=== PATIENT | male | born 1940 | race Caucasian/White ===

== ENCOUNTER 2017-07-01 20:53 | Inpatient (IN) ==
[2017-07-01] MEDS ORDERED: SODIUM CHLORIDE 0.9% 1,000 ML IV STA (21:44)
[2017-07-01] MEDS ORDERED: cefTRIAXone 1,000 MG VIAL ONE (21:46)
[2017-07-01] MEDS ORDERED: SODIUM CHLORIDE 0.9% 2,500 ML IV ONE (21:48)
[2017-07-01] MEDS ORDERED: cefTRIAXone 1,000 MG in SODIUM CHLORIDE 0.9% 100 ML IV STA (21:50)
--- NOTE | 2017-07-01 21:52 | Emergency Department Note ---
Yan Taylor Brooke, am scribing for, and in the presence of, Chema Kingston MD 21 :51. Vashti Taylor Charles R, MD, personally performed the services described in this documentation, ascribed by Adriana Heredia in my presence, and it is both accurate and complete . Arrival - Arrival Chief Complaint: Fever ED Nursing Triage Note: Pt arrives via ems with complaints of fever since yesterday and altered mental status. states that he has been acting confused today. states that he has had some nasal congestion but no cough or other symptoms. Reports a temp of 101.0 axillary at home. Mode of Arrival: Stretcher Limitations: Altered Mental Status Source: Patient, Significant other, Family Time Seen by Provider: 07/01/17 21:16 - History of Present Illness HPI Narrative: Patient is a 76 year old male who presents to the ED with c/o fever and altered mental status. Patient is a poor historian. Family says Patient has been running a low grade fever since last night. His temperature during triage was 102.3. Family says Patient does have a history of Alzheimer Disease but states he is acting differently than he normally does. Family says "he has been out of it all day." Family says he was walking earlier but it was slow and unsteady. However, this evening, Patient was unable to get off the couch so Family called EMS. He also has PMHx of [place](39 years old), depression, dementia, dyslipidemia, and tremors. Patient's Primary Care Provider is Dr. Das and his Receiving Teller is Dr. Rodriguez. Onset (ago): day(s) (1) Allergies/Adverse Reactions: Allergies Allergy/AdvReac Type Severity Reaction Status Date / Time No Known Allergies Allergy Verified 10/21/16 16:42 Home Medications: Home Medications Medication Instructions Recorded Confirmed Type Ascorbic Acid [Vitamin C] 500 mg PO DAILY 07/01/17 07/01/17 History Aspirin EC Tab 81 mg PO DAILY 07/01/17 07/01/17 History Cholecalciferol (Vitamin D3) 1,000 unit PO DAILY 07/01/17 07/01/17 History [Vitamin D3] Cilostazol 50 mg PO BID 07/01/17 07/01/17 History Donepezil HCl 10 mg PO DAILY 07/01/17 07/01/17 History Escitalopram [Lexapro] 10 mg PO DAILY 07/01/17 07/01/17 History Fenofibrate [Tricor] 145 mg PO DAILY 07/01/17 07/01/17 History Fexofenadine [Nayla] 180 mg PO DAILY 07/01/17 07/01/17 History Memantine HCl [Namenda XR] 28 mg PO DAILY 07/01/17 07/01/17 History Multivitamin (Centrum) [Centrum 1 tablet DAILY 07/01/17 07/01/17 History Tab] Simvastatin 20 mg PO DAILY 07/01/17 07/01/17 History Review of System - Review of System ROS unobtainable: due to mental status 12 point system: reviewed and no additional remarkable complaints except as stated - Review of System Constitutional: Present: fever Respiratory: Absent: respiratory distress Skin: Absent: rash Neurological: Present: other (altered mental status) Medical,Surgical,& Family Hx - Medical History Psychological: History of: Depression Neurology: History of: Dementia Endocrine: History of: Dyslipidemia - Social History Smoking Status: Never smoker Frequency of Alcohol Use: None Type of Drug Use: None Exam Vital Signs: Vital Signs Temperature 102.3 F H 07/01/17 20:53 Pulse Rate 80 07/01/17 20:53 Respiratory Rate 20 07/01/17 20:53 Blood Pressure 83/59 07/01/17 20:53 O2 Sat by Pulse Oximetry 95 07/01/17 20:53 - General General appearance: alert, in no apparent distress, other (confused. Nonverbal but moans.) - Head Head exam: Present: atraumatic, normocephalic - Eye Eye exam: Present: normal appearance, PERRL, EOMI - ENT ENT exam: Present: normal exam - Neck Neck exam: Present: normal inspection - Chest Chest inspection: Present: normal inspection, symmetric chest wall rise - Respiratory Respiratory exam: Present: normal lung sounds bilaterally - Cardiovascular Cardiovascular exam: Present: normal rhythm, tachycardia, normal heart sounds - Abdominal Exam Abdominal exam: Present: soft, normal bowel sounds. Absent: distention, tenderness - Extremities Exam Extremities exam: Present: normal inspection - Back Exam Back exam: Present: normal inspection - Neurological Exam Neurological exam: Present: alert. Absent: oriented X3 - Psychiatric Psychiatric exam: Present: normal affect, normal mood - Skin Skin exam: Present: warm (Febrile), dry, intact, normal color Course - Consultations Consultation #1: Hospitalist will admit patient Time: 23:13 Results - Labs CBC & BMP: 07/01/17 21:04 07/01/17 21:04 Lab Results: I have reviewed the patients labs Labs: Laboratory Tests 07/01/17 07/01/17 07/01/17 21:04 21:04 21:04 WBC 5.8 RBC 3.18 L Hgb 9.5 L Hct 27.6 L MCV 86.8 L MCH 30 MCHC 34.4 RDW 14.7 Plt Count 133 MPV 10.1 Neut % (Auto) 48.0 Lymph % (Auto) 46.7 Elbert % (Auto) 2.9 Eos % (Auto) 0.0 Baso % (Auto) 0.2 Neut # (Auto) 2.8 Lymph # (Auto) 2.7 Elbert # (Auto) 0.2 Eos # (Auto) 0.0 Baso # (Auto) 0.0 Immature Gran % 2.2 Nucleated RBC % 0.0 Immature Gran # 0.13 Nucleated RBCs # 0.00 Immature Plt Fraction 0.0 Sodium 137 Potassium 3.4 L Chloride 106 Carbon Dioxide 25 Anion Gap 9.4 BUN 25 H Creatinine 1.40 H GFR Calculation 59 BUN/Creatinine Ratio 17.00 Glucose 111 H Calculated Osmolality 277.8 Lactic Acid 1.9 Calcium 8.0 L Total Bilirubin < 0.39 AST 23 ALT 16 Alkaline Phosphatase < 10 L Total Protein 6.1 L Albumin 3.4 Globulin 2.7 Albumin/Globulin Ratio 1.2 Laboratory Tests 07/01/17 07/01/17 07/01/17 21:04 21:04 Unknown INR 1.4 PT Patient/Control Mix 14.8 Circ Anticoag PTT 31.4 ABG pH 7.434 ABG pCO2 36.1 ABG pO2 61.6 L ABG HCO3 24.5 ABG Total CO2 22.4 L ABG O2 Saturation 92.1 L ABG Base Excess 0.2 FiO2 21.00 Sodium 137 Potassium 3.4 L Chloride 106 Carbon Dioxide 25 Anion Gap 9.4 BUN 25 H Creatinine 1.40 H GFR Calculation 59 BUN/Creatinine Ratio 17.00 Glucose 111 H Calculated Osmolality 277.8 Calcium 8.0 L Total Bilirubin < 0.39 AST 23 ALT 16 Alkaline Phosphatase < 10 L Total Protein 6.1 L Albumin 3.4 Globulin 2.7 Albumin/Globulin Ratio 1.2 Laboratory Tests 07/01/17 22:59 Urine Color Yellow Urine Appearance Clear Urine pH 5.0 Ur Specific [place] 1.011 Urine Protein Negative Urine Glucose (UA) Negative Urine Ketones Negative Urine Blood Negative Urine Nitrate Negative Urine Bilirubin Negative Urine Urobilinogen < 2.0 H Urine Leukocytes Negative Urine RBC <1 Urine WBC 2 Urine Mucus Occasional Ur Culture Indicated? Ordered separately - Diagnostic Findings Procedure: Chest x-ray: image reviewed by me (Questionable infiltrate right lower lung also infiltrate/mass left lower lung difficult to see because of the diaphragm) Critical Care Time Critical Care Time: Yes Total Critical Care Time: 60 Disposition Clinical Impression: Sepsis, Hypotension, Alzheimer's dementia, Fever, Confusion, Altered mental status, Community acquired pneumonia Case discussed with: patient, patient's family Disposition: Still a Patient Condition: Guarded Time of Disposition: 23:15 Sepsis - Sepsis Classification of Sepsis: Sepsis - Physical Exam Respiratory exam: rhonchi Capillary Refill: Less Than 3 Seconds
[2017-07-01 22:03] LABS: Basophils % 0.2 % (0.0-0.8); Hematocrit 27.6 VOL% (42.0-52.0); Hemoglobin 9.5 GM/DL (14.0-18.0); Immature Granulocytes % 2.2 %; Immature Granulocytes Absolute 0.13 #; Lymphocytes # 2.7 10*3/uL (1.4-4.0); Lymphocytes % 46.7 % (21.2-54.2); Mean Corpuscular HGB Conc 34.4 GM/DL (32-36); Mean Corpuscular Hemoglobin 30 PG (27-34); Mean Corpuscular Volume 86.8 FL (87-102); Mean Platelet Volume 10.1 FL (9.6-12.0); Monocytes # 0.2 10*3/uL (0.11-0.8); Monocytes % 2.9 % (1.7-12.7); Neutrophils # 2.8 10*3/uL (1.4-7.4); Platelet Count 133 T/CUMM (130-400); Red Blood Count 3.18 MC/CUMM (3.8-5.5); Red Cell Distribution Width 14.7 % (9.3-17.3); White Blood Count 5.8 T/CUMM (4-12)
[2017-07-01 22:14] LABS: Alanine Aminotransferase 16 U/L (16-61); Albumin 3.4 G/DL (3.4-5.0); Alkaline Phosphatase < 10 U/L (45-117); Aspartate Amino Transferase 23 U/L (0-37); Bilirubin,Total < 0.39 MG/DL (0.2-1.0); Blood Urea Nitrogen 25 MG/DL (7-18); Glucose 111 MG/DL (74-106); Osmolality,Calculated 277.8 MOS/KG (273-304); Potassium 3.4 MMOL/L (3.5-5.1); Sodium 137 MMOL/L (136-145); Total Protein 6.1 G/DL (6.4-8.3)
[2017-07-01 22:15] LABS: ABG Base Excess 0.2 MMOL/L (-2.5-2.5); ABG HCO3 24.5 MMOL/L (20-26); ABG Oxygen Saturation 92.1 % (95-100); ABG PCO2 36.1 MM HG (35-48); ABG PH 7.434 (7.35-7.45); ABG PO2 61.6 MM HG (80-95); ABG TCO2 22.4 MMOL/L (23-27)
[2017-07-01 22:18] LABS: INR 1.4; PT Patient Result 14.8 SECS; Partial Thromboplastin Time 31.4 SECS (0-40)
[2017-07-01] MEDS ORDERED: SODIUM CHLORIDE 0.9% 500 ML IV STA (22:28)
[2017-07-01 23:50] LABS: Apearance,Urine CLEAR (Clear); Bilirubin,Urine Negative (Negative); Blood, Urine Negative (Negative); Glucose,Urine (UA) Negative (Negative); Ketones,Urine Negative (Negative); Mucus,Urine Occasional /LPF (Occasional); Nitrite,Urine Negative (Negative); Protein,Urine Negative; RBC,Urine <1 /HPF (0-4); Urine Color Yellow (Yellow); Urine Specific Gravity 1.011 (1.001-1.035); Urine Urobilinogen < 2.0 EU/DL (0.2-1.0); WBC,Urine 2 /HPF (0-6)
[2017-07-02] MEDS: SODIUM CHLORIDE 0.9% 1,000 ML IV SCH ×6 (00:37→23:01)
[2017-07-02] MEDS ORDERED: LEVOFLOXACIN INJ 150 ML IV ONE (00:38)
[2017-07-02] MEDS: LEVOFLOXACIN INJ 750 MG in PREMIX 1 EACH IV SCH ×2 (00:38→23:33)
--- NOTE | 2017-07-02 00:43 | Hospitalist History & Physical ---
Assessment and Plan (1) Sepsis Status: Acute Current Visit: Yes (2) Hypotension Status: Acute Current Visit: Yes (3) Alzheimer's disease Status: Acute Current Visit: Yes (4) Fever Status: Acute Current Visit: Yes (5) Confusion Status: Acute Current Visit: Yes (6) Altered mental status Status: Acute Current Visit: Yes (7) Community acquired pneumonia Status: Acute Assessment and plan: Patient appears to be septic. He is already received 2.5 L of fluid boluses in the emergency room. Will continue septic protocol with choice of antibiotics. Continue other home meds as appropriate. Feel that the source is most likely a pneumonia. Will go ahead and culture his urine also. Blood cultures were drawn. Current Visit: Yes History of Present Illness Chief complaint: Altered mental status History of present illness: Mr. Colón is a 76 year old male with past medical history significant for coronary artery disease and dementia who was in his normal state of health for the past couple of days. Patient has been running a fever. He is temperature has been as high as 102.3. Family reports that he she has been acting differently. He is basically slept all day yesterday. He seemed more lethargic today. Leg could not get him up off the couch and so they called EMS who brought him up to our hospital for further evaluation. I was consulted to admit him Home Medications Medication Instructions Recorded Confirmed Type Ascorbic Acid [Vitamin C] 500 mg PO DAILY 07/01/17 07/01/17 History Aspirin EC Tab 81 mg PO DAILY 07/01/17 07/01/17 History Cholecalciferol (Vitamin D3) 1,000 unit PO DAILY 07/01/17 07/01/17 History [Vitamin D3] Cilostazol 50 mg PO BID 07/01/17 07/01/17 History Donepezil HCl 10 mg PO DAILY 07/01/17 07/01/17 History Escitalopram [Lexapro] 10 mg PO DAILY 07/01/17 07/01/17 History Fenofibrate [Tricor] 145 mg PO DAILY 07/01/17 07/01/17 History Fexofenadine [Nayla] 180 mg PO DAILY 07/01/17 07/01/17 History Memantine HCl [Namenda XR] 28 mg PO DAILY 07/01/17 07/01/17 History Multivitamin (Centrum) [Centrum 1 tablet DAILY 07/01/17 07/01/17 History Tab] Simvastatin 20 mg PO DAILY 07/01/17 07/01/17 History Allergies Allergy/AdvReac Type Severity Reaction Status Date / Time No Known Allergies Allergy Verified 10/21/16 16:42 Medical,Surgical,& Family Hx - Medical History Psychological: History of: Depression Neurology: History of: Dementia, Parkinson's Disease Endocrine: History of: Dyslipidemia - Surgical History Additional Surgical History: Aortic aneurysm repair cholecystectomy - Family History Family History: Reports;: Family Cancer, Family Diabetes - Social History Smoking Status: Never smoker Frequency of Alcohol Use: None Type of Drug Use: None ROS unobtainable: due to mental status Exam - Constitutional Vitals: Period Temp Pulse Resp BP Sys/Ingram Pulse Ox Last 24 Hr 102.3 F-102.3 F 80-80 20-20 83-83/59-59 95 General appearance: normal weight, other (We will interact but is confused) - Head Head exam: Present: normal inspection - Eye Pupils: Present: RONAN - ENT ENT exam: Present: normal exam - Neck Neck exam: Present: normal inspection - Respiratory Respiratory exam: Present: clear to auscultation bilaterally - Cardiovascular Cardiovascular exam: Present: regular rate and rhythm - GI/Abdominal GI/Abdominal exam: Present: normal bowel sounds - Extremities Exam Extremities exam: Present: normal inspection - Back Exam Back exam: Present: normal inspection - Neurological Exam Neurological exam: Present: altered - Psychiatric Psychiatric exam: Present: flat affect - Skin Skin exam: Present: warm Results - Labs CBC & BMP: 07/01/17 21:04 07/01/17 21:04
[2017-07-02] MEDS ORDERED: NOREPINEPHRINE 4 MG/4 ML VIAL IV ONE (00:47)
[2017-07-02] MEDS ORDERED: ALBUTEROL 2.5 MG/3 ML NEB RESP TX PRN (00:48)
[2017-07-02] MEDS ORDERED: ONDANSETRON 4 MG/2 ML VIAL IV PRN (00:48)
[2017-07-02] MEDS: NOREPINEPHRINE 8 MG in SODIUM CHLORIDE 0.9% 242 ML IV SCH (01:14)
[2017-07-02] MEDS ORDERED: PANTOPRAZOLE 40 MG VIAL IV ONE (01:20)
[2017-07-02] MEDS ORDERED: PIPERACILLIN/TAZOBACTAM 3,375 MG VIAL IV ONE (01:20)
[2017-07-02] MEDS ORDERED: ENOXAPARIN 40 MG/0.4 ML SYRINGE ONE (01:20)
[2017-07-02] MEDS: ENOXAPARIN 40 MG/0.4 ML SYRINGE SUBCUT SCH (01:23)
[2017-07-02] MEDS: PANTOPRAZOLE 40 MG VIAL IV SCH (01:24)
[2017-07-02] MEDS: ACETAMINOPHEN 325 MG TABLET PO PRN ×3 (02:31→16:44)
[2017-07-02] MEDS: PIPERACILLIN/TAZOBACTAM 3,375 MG in SODIUM CHLORIDE 0.9% 100 ML IV SCH ×3 (02:31→18:47)
[2017-07-02] MEDS: ZIPRASIDONE 20 MG/1 ML VIAL IM PRN ×4 (03:45→23:29)
[2017-07-02 05:35] LABS: Basophils % 0.2 % (0.0-0.8); Hematocrit 26.8 VOL% (42.0-52.0); Hemoglobin 8.9 GM/DL (14.0-18.0); Immature Granulocytes % 4.5 %; Immature Granulocytes Absolute 0.23 #; Lymphocytes # 2.1 10*3/uL (1.4-4.0); Mean Corpuscular HGB Conc 33.2 GM/DL (32-36); Mean Corpuscular Hemoglobin 29 PG (27-34); Mean Platelet Volume 10.2 FL (9.6-12.0); Monocytes # 0.2 10*3/uL (0.11-0.8); Monocytes % 2.9 % (1.7-12.7); Neutrophils # 2.7 10*3/uL (1.4-7.4); Neutrophils % 52.4 % (38.7-73.9); Platelet Count 112 T/CUMM (130-400); Red Blood Count 3.08 MC/CUMM (3.8-5.5); Red Cell Distribution Width 14.7 % (9.3-17.3); White Blood Count 5.2 T/CUMM (4-12)
[2017-07-02 06:17] LABS: Atypical Lymphocytes Moderate; Band Neutrophils 1 % (0-10); Hypochromasia 1+; Lymphocytes 22 % (20-55); Platelet Estimate Decreased; Segmented Neutrophils 75 % (50-85); Total Cells Counted 100
[2017-07-02 06:24] LABS: Alanine Aminotransferase 15 U/L (16-61); Alkaline Phosphatase < 10 U/L (45-117); Aspartate Amino Transferase 27 U/L (0-37); Blood Urea Nitrogen 21 MG/DL (7-18); Calcium 7.9 MG/DL (8.5-10.1); Glucose 112 MG/DL (74-106); Osmolality,Calculated 276.8 MOS/KG (273-304); Potassium 3.3 MMOL/L (3.5-5.1); Sodium 137 MMOL/L (136-145); Total Protein 5.6 G/DL (6.4-8.3)
--- NOTE | 2017-07-02 06:41 | XRay Report ---
XR chest 1V portable Indication: Fever. Chest one view: Comparison 01/31/2012. Lungs are somewhat hypoinflated when compared to the prior examination. Diffuse moderately severe peribronchial thickening is developed throughout. No focal infiltrate is seen. Heart size is normal. Mediastinal contours unremarkable. Central pulmonary vascular crowding noted. Impression: Airways disease such as bronchitis or viral syndrome. Pulmonary hypoinflation. PROCEDURE INTERPRETED AT [facility] DEPARTMENT OF RADIOLOGY Final Report Signed by: Grayson Tobar M.D.
[2017-07-02 08:34] LABS: Magnesium 2.1 MG/DL (1.8-2.4); Osmolality,Calculated 282.3 MOS/KG (273-304); Potassium 3.6 MMOL/L (3.5-5.1)
[2017-07-02] MEDS ORDERED: PIPERACILLIN/TAZOBACTAM 3,375 MG in SODIUM CHLORIDE 0.9% 100 ML IV SCH (10:00)
--- NOTE | 2017-07-02 14:22 | Hospitalist Progress Note ---
Assessment and Plan - Time spent with patient Time spent with patient: Greater than 30 minutes (1) Altered mental status Status: Acute Assessment and plan: 07/02/2017: Patient is somnolent. His baseline neurologic function and status is not known. Obtain additional medical information when patient's family members are available. Current Visit: Yes (2) Community acquired pneumonia Status: Acute Assessment and plan: 07/02/2017: Portable chest x-ray completed yesterday quality is reduced by hypoinflation. Moderately severe peribronchial thickening is described throughout. No focal infiltrate. Changes possibly consistent with acute bronchitis. Monitor oxygen saturation. Add supplemental oxygen as required to maintain saturation greater than 90%. Patient's reduced cognition limits his ability to participate with cough and deep breathing exercises or bedside incentive spirometry exercises. Current Visit: Yes (3) Sepsis Status: Acute Assessment and plan: 07/02/2017: Hypotension and fever documented at the time of hospital admission. Patient now has normal range blood pressure without pressors or aggressive IV fluid hydration. Patient is receiving empiric Levaquin and Zosyn antibiotic therapy. He required levophed blood pressure support overnight. Follow-up 07/01/2017 blood and urine culture reports. Current Visit: Yes (4) Coronary artery disease Status: Chronic Assessment and plan: 07/02/2017: Patient is hemodynamically stable. There is no report of recent chest pain, shortness of breath, palpitations, cardiac rhythm disturbance, or active CHF decompensation. Current Visit: Yes (5) Acute kidney injury Status: Acute Assessment and plan: 07/02/2017: Patient's BUN and creatinine are decreasing toward normal range. Continue IV hydration. Recheck BMP in a.m. Current Visit: Yes Hospitalist: Subjective Interval history: 07/02/2017: Patient is a 76-year-old male admitted for evaluation and treatment of increased confusion and altered mental status. Patient has a history of Alzheimer's type dementia. His specific baseline level of function is not known. Clarify patient's medical history when his family is available. Exam - Constitutional Vitals: Period Temp Pulse Resp BP Sys/Ingram Pulse Ox Last 24 Hr 98.2 F-102.3 F 63-88 12-22 83-173/52-75 93-99 General appearance: normal weight - Head Head exam: Present: normal inspection - Neck Neck exam: Absent: meningismus, tenderness - Respiratory Respiratory exam: Present: decreased breath sounds. Absent: rales, rhonchi, wheezes - Cardiovascular Cardiovascular exam: Present: regular rate and rhythm - GI/Abdominal GI/Abdominal exam: Present: normal bowel sounds, distended, soft, other (Araya catheter is collecting clear yellow urine). Absent: tenderness, rebound - Extremities Exam Extremities exam: Present: other (Left distal anterior tibia healed scar.). Absent: calf tenderness, edema - Back Exam Back exam: Absent: CVA tenderness (L), CVA tenderness (R) - Neurological Exam Neurological exam: Present: other (Somnolent) - Skin Skin exam: Present: normal color, warm. Absent: rash Results - Labs CBC & BMP: 07/02/17 04:02 07/02/17 07:55
[2017-07-03] MEDS ORDERED: LEVOFLOXACIN INJ 750 MG in PREMIX 1 EACH IV SCH (01:00)
[2017-07-03] MEDS: NOREPINEPHRINE 8 MG in SODIUM CHLORIDE 0.9% 242 ML IV SCH (01:25)
[2017-07-03] MEDS: PANTOPRAZOLE 40 MG VIAL IV SCH (01:33)
[2017-07-03] MEDS: ENOXAPARIN 40 MG/0.4 ML SYRINGE SUBCUT SCH (01:33)
[2017-07-03] MEDS: PIPERACILLIN/TAZOBACTAM 3,375 MG in SODIUM CHLORIDE 0.9% 100 ML IV SCH ×3 (01:34→17:29)
[2017-07-03] MEDS: SODIUM CHLORIDE 0.9% 1,000 ML IV SCH ×4 (01:42→15:32)
[2017-07-03 05:33] LABS: Basophils % 0.2 % (0.0-0.8); Hemoglobin 8.6 GM/DL (14.0-18.0); Immature Granulocytes % 0.7 %; Immature Granulocytes Absolute 0.03 #; Lymphocytes # 2.4 10*3/uL (1.4-4.0); Mean Corpuscular HGB Conc 33.1 GM/DL (32-36); Mean Corpuscular Hemoglobin 29 PG (27-34); Mean Corpuscular Volume 88.1 FL (87-102); Mean Platelet Volume 10.2 FL (9.6-12.0); Monocytes # 0.2 10*3/uL (0.11-0.8); Monocytes % 4.1 % (1.7-12.7); Neutrophils # 1.6 10*3/uL (1.4-7.4); Platelet Count 107 T/CUMM (130-400); Red Blood Count 2.95 MC/CUMM (3.8-5.5); Red Cell Distribution Width 14.9 % (9.3-17.3); White Blood Count 4.2 T/CUMM (4-12)
[2017-07-03 06:10] LABS: Calcium 7.7 MG/DL (8.5-10.1); Magnesium 1.9 MG/DL (1.8-2.4); Osmolality,Calculated 286.8 MOS/KG (273-304); Potassium 3.6 MMOL/L (3.5-5.1)
[2017-07-03 06:22] LABS: Atypical Lymphocytes Moderate; Band Neutrophils 3 % (0-10); Hypochromasia Slight; Lymphocytes 63 % (20-55); Platelet Estimate Decreased; Segmented Neutrophils 31 % (50-85); Total Cells Counted 100
[2017-07-03] MEDS: ZIPRASIDONE 20 MG/1 ML VIAL IM PRN (08:04)
--- NOTE | 2017-07-03 08:55 | Physician Query Form ---
CLICK EDIT DOCUMENT TO SELECT QUERY ANSWER --> OK --> SIGN July Mckeon RN, CCDS Certified Clinical [employer] W) [phone] (f) [phone] [email or web address]: Make your selection(s) from the choices in EACH section by typing an "x" and enter comments in the comment section. Please use your independent medical judgment in providing your response. This request does not imply that any particular answer is desired or expected. CLINICAL INDICATORS: (Providers should not edit this section) Medical Record indicates that the patient was admitted with sepsis, AMS, "dementia", "Alzheimer's", "confused", "Nonverbal but moans", "acting differently than he normally does", " seemed more lethargic" and the patient was placed in ICU. ACUITY: ( ) Acute ( x) Acute on Chronic ( ) Chronic ( ) Clinically unable to determine NATURE: ( x Delirium due to general medical condition ( x) Dementia ( ) Encephalopathy ( ) Unconscious ( ) Transient level of awareness ( ) Comatose ( ) Locked-in State ( ) Persistent Vegetative State ( ) Other, please specify: ( ) Clinically unable to determine Please indicate the underlying cause of the altered mental status (CHECK ALL THAT APPLY): ( ) Baseline dementia (x ) Alzheimer's disease ( ) Parkinson's disease ( ) Lewy body dementia ( ) Acute stroke ( ) Late effect of stroke ( ) Reactive (from emotional stress, psychological trauma) ( ) Due to narcotics/other drugs ( ) Post procedural delirium ( ) Transient ischemic attack ( ) Generalized cerebral edema ( ) Normal pressure hydrocephalus ( ) Psychiatric illness ( ) Other, please specify: ( ) Clinically unable to determine Please indicate if there is an infection, sepsis, dehydration or specific organ failure that is causing the dementia. Be specific with clarifying the relationship between that process and the mental status change. COMMENTS: PLEASE ALSO DOCUMENT RESPONSE IN PROGRESS NOTES AND/OR DISCHARGE SUMMARY Use of terms such as suspected, likely, or probable (associated with a specific diagnosis that is being evaluated, monitored, or treated as if it exists) are acceptable and can be restated in the discharge summary if not ruled out. MTDD
[2017-07-03] MEDS ORDERED: ZINC OXIDE 16% PASTE 57 GM TUBE TOP PRN (09:55)
--- NOTE | 2017-07-03 14:55 | Hospitalist Progress Note ---
Assessment and Plan (1) Altered mental status Status: Acute Assessment and plan: 07/02/2017: Patient is somnolent. His baseline neurologic function and status is not known. Obtain additional medical information when patient's family members are available. 07/03/2017: Patient's states that patient is better today but still not near his baseline cognitive function. Prior to the current acute illness patient was independent with ADLs. He was able to ambulate within her home without any assistance. Current Visit: Yes (2) Community acquired pneumonia Status: Acute Assessment and plan: 07/02/2017: Portable chest x-ray completed yesterday quality is reduced by hypoinflation. Moderately severe peribronchial thickening is described throughout. No focal infiltrate. Changes possibly consistent with acute bronchitis. Monitor oxygen saturation. Add supplemental oxygen as required to maintain saturation greater than 90%. Patient's reduced cognition limits his ability to participate with cough and deep breathing exercises or bedside incentive spirometry exercises. 07/03/2017: Chest x-ray did not confirm presence of specific infiltrates. Patient does not have leukocytosis or fever. He is receiving empiric antibiotic therapy including Levaquin and Zosyn. Patient is not able to produce a sputum specimen for Gram stain and culture. Patient is at increased risk for aspiration related to his decreased cognition. He should complete a 7- 10 day IV antibiotic course. Consider decelerating antibiotic spectrum if blood and urine cultures remain negative over the next 24 hours. Current Visit: Yes (3) Sepsis Status: Acute Assessment and plan: 07/02/2017: Hypotension and fever documented at the time of hospital admission. Patient now has normal range blood pressure without pressors or aggressive IV fluid hydration. Patient is receiving empiric Levaquin and Zosyn antibiotic therapy. He required levophed blood pressure support overnight. Follow-up 07/01/2017 blood and urine culture reports. 07/03/2017: Patient has normal range total white count, respiratory rate, and body temperature. If sepsis was present on admission it has now resolved. Current Visit: Yes (4) Coronary artery disease Status: Chronic Assessment and plan: 07/02/2017: Patient is hemodynamically stable. There is no report of recent chest pain, shortness of breath, palpitations, cardiac rhythm disturbance, or active CHF decompensation. 07/03/2017: No acute ACS or decompensated CHF. Continue telemetry and clinical monitoring. Current Visit: Yes (5) Acute kidney injury Status: Acute Assessment and plan: 07/02/2017: Patient's BUN and creatinine are decreasing toward normal range. Continue IV hydration. Recheck BMP in a.m. 07/03/2017: Patient now has normal range BUN and creatinine. Acute kidney injury has resolved. Discontinue IV fluids recheck BMP in a.m. Current Visit: Yes Hospitalist: Subjective Interval history: 07/03/2017: Patient is awake today. He communicates well verbally. Patient's is at bedside at the time of my interview and exam today. Patient is somewhat confused but offers no specific complaints. Exam - Constitutional Vitals: Period Temp Pulse Resp BP Sys/Ingram Pulse Ox Last 24 Hr 98.5 F-100.8 F 67-85 12-24 126-161/53-91 92-97 General appearance: normal weight - Head Head exam: Present: normal inspection - Neck Neck exam: Present: normal inspection. Absent: meningismus, tenderness - Respiratory Respiratory exam: Present: decreased breath sounds. Absent: rhonchi, wheezes - Cardiovascular Cardiovascular exam: Present: regular rate and rhythm - GI/Abdominal GI/Abdominal exam: Present: normal bowel sounds, soft. Absent: tenderness, rebound - Extremities Exam Extremities exam: Absent: calf tenderness, edema - Back Exam Back exam: Absent: CVA tenderness (L), CVA tenderness (R) - Neurological Exam Neurological exam: Present: alert, altered - Psychiatric Psychiatric exam: Present: normal affect - Skin Skin exam: Present: normal color, warm. Absent: rash Results - Labs CBC & BMP: 07/03/17 04:42 07/03/17 04:42
[2017-07-03] MEDS: CILOSTAZOL 50 MG TABLET PO SCH (20:57)
[2017-07-04] MEDS: ACETAMINOPHEN 325 MG TABLET PO PRN (00:31)
[2017-07-04] MEDS: LEVOFLOXACIN INJ 750 MG in PREMIX 1 EACH IV SCH (00:37)
[2017-07-04] MEDS: PIPERACILLIN/TAZOBACTAM 3,375 MG in SODIUM CHLORIDE 0.9% 100 ML IV SCH ×3 (02:32→18:02)
[2017-07-04 06:46] LABS: Basophils % 0.2 % (0.0-0.8); Eosinophils % 0.5 % (0.00-10.9); Hemoglobin 9.3 GM/DL (14.0-18.0); Immature Granulocytes % 0.5 %; Immature Granulocytes Absolute 0.02 #; Lymphocytes # 2.4 10*3/uL (1.4-4.0); Lymphocytes % 57.7 % (21.2-54.2); Mean Corpuscular HGB Conc 33.2 GM/DL (32-36); Mean Corpuscular Hemoglobin 29 PG (27-34); Mean Corpuscular Volume 88.1 FL (87-102); Mean Platelet Volume 9.8 FL (9.6-12.0); Monocytes # 0.3 10*3/uL (0.11-0.8); Monocytes % 6.7 % (1.7-12.7); Neutrophils # 1.4 10*3/uL (1.4-7.4); Neutrophils % 34.4 % (38.7-73.9); Platelet Count 111 T/CUMM (130-400); Red Blood Count 3.18 MC/CUMM (3.8-5.5); Red Cell Distribution Width 14.7 % (9.3-17.3); White Blood Count 4.2 T/CUMM (4-12)
[2017-07-04 07:27] LABS: Alanine Aminotransferase 32 U/L (16-61); Albumin 2.8 G/DL (3.4-5.0); Alkaline Phosphatase < 10 U/L (45-117); Aspartate Amino Transferase 43 U/L (0-37); Blood Urea Nitrogen 14 MG/DL (7-18); Calcium 8.2 MG/DL (8.5-10.1); Glucose 97 MG/DL (74-106); Osmolality,Calculated 286.8 MOS/KG (273-304); Potassium 3.5 MMOL/L (3.5-5.1); Sodium 144 MMOL/L (136-145); Total Protein 5.8 G/DL (6.4-8.3)
[2017-07-04 08:34] LABS: Band Neutrophils 2 % (0-10); Hypochromasia 1+; Lymphocytes 69 % (20-55); Ovalocytes Slight; Platelet Estimate Decreased; Segmented Neutrophils 25 % (50-85); Total Cells Counted 100
[2017-07-04 08:35] LABS: Microcytosis 1+
[2017-07-04] MEDS: SIMVASTATIN 20 MG TABLET PO SCH (08:52)
[2017-07-04] MEDS: FEXOFENADINE 180 MG TABLET PO SCH (08:52)
[2017-07-04] MEDS: CHOLECALCIFEROL 1,000 UNIT TABLET PO SCH (08:52)
[2017-07-04] MEDS: ASCORBIC ACID 500 MG TABLET PO SCH (08:52)
[2017-07-04] MEDS: CILOSTAZOL 50 MG TABLET PO SCH ×2 (08:52→20:37)
[2017-07-04] MEDS: FENOFIBRATE 145 MG TABLET PO SCH (08:52)
[2017-07-04] MEDS: ESCITALOPRAM 10 MG TABLET PO SCH (08:52)
[2017-07-04] MEDS: MULTIVITAMIN (CENTRUM) TABLET PO SCH (08:52)
[2017-07-04] MEDS: TAMSULOSIN 0.4 MG CAPSULE PO SCH (08:53)
[2017-07-04] MEDS: MEMANTINE 10 MG TABLET PO SCH ×2 (08:53→20:37)
[2017-07-04] MEDS: ASPIRIN EC 81 MG TABLET PO SCH (08:53)
[2017-07-04] MEDS: DONEPEZIL 10 MG TABLET PO SCH (08:53)
--- NOTE | 2017-07-04 10:23 | Ultrasound Report ---
US venous doppler LE LT Indication: Redness, swelling. Comparison: None. Technique: Grayscale, spectral, and color Doppler interrogation of the left lower extremity veins was performed. Augmentation and compression was performed. Findings: Grayscale, color Doppler, and pulsed Doppler evaluation of the veins of the left lower extremity demonstrates no evidence of deep venous thrombosis. IMPRESSION: No evidence of deep venous thrombosis in the left lower extremity. PROCEDURE INTERPRETED AT [facility] DEPARTMENT OF RADIOLOGY Final Report Signed by: Dr Rafa Perez
--- NOTE | 2017-07-04 10:48 | XRay Report ---
Portable chest Date: 07/04/2017 Clinical history: Congestion Comparison: 07/01/2017 Technique: Portable AP sitting chest Findings: The heart is minimally enlarged with uncoiling the aorta. Progressive parenchymal findings in the lungs with small pleural effusions. Stable mediastinum with degenerative changes. Impression: Progressive bilateral pneumonia with increased atelectasis and very small pleural effusions. PROCEDURE INTERPRETED AT [facility] DEPARTMENT OF RADIOLOGY Final Report Signed by: Dr. Sarah Meyer
--- NOTE | 2017-07-04 11:54 | Hospitalist Progress Note ---
Assessment and Plan (1) Altered mental status Status: Acute Assessment and plan: It appears patient is back to baseline mental status. He has an underlying dementia Current Visit: Yes (2) Community acquired pneumonia Status: Acute Assessment and plan: CXR done this am showed a progressive bilateral pneumonia with increased atelectasis and very small pleural effusions. plan continue IV antibiotics and bronchodilators PT consult Current Visit: Yes (3) Sepsis Status: Acute Assessment and plan: BC and UC are negative so far, continue with IV antibiotics. Current Visit: Yes (4) Coronary artery disease Status: Chronic Assessment and plan: Patient is hemodynamically stable. There is no report of recent chest pain, shortness of breath, palpitations, cardiac rhythm disturbance, or active CHF decompensation. Current Visit: Yes (5) Acute kidney injury Status: Acute Assessment and plan: Improved Current Visit: Yes (6) Alzheimer's disease Status: Acute Assessment and plan: with Parkinsons \\Plan Continue home meds. Current Visit: Yes Hospitalist: Subjective Interval history: Patient had a doppler USS this am which ruled out a DVT in the left LE. CXR showed progressive bilateral pneumonia with increased atelectasis and very small pleural effusions. Exam - Constitutional Vitals: Period Temp Pulse Resp BP Sys/Ingram Pulse Ox Last 24 Hr 97.3 F-98.6 F 53-91 16-20 105-136/55-93 91-97 General appearance: no acute distress - Head Head exam: Present: normal inspection - Respiratory Respiratory exam: Present: decreased breath sounds - Cardiovascular Cardiovascular exam: Present: regular rate and rhythm - GI/Abdominal GI/Abdominal exam: Present: normal bowel sounds - Extremities Exam Extremities exam: Present: other (leg calf swelling) - Neurological Exam Neurological exam: Present: alert, oriented X3 Results - Labs CBC & BMP: 07/04/17 06:20 07/04/17 06:20 Lab Results: I have reviewed the past 24 hour labs
[2017-07-04 17:16] LABS: Apearance,Urine CLOUDY (Clear); Bacteria,Urine Occasional /HPF (Few); Bilirubin,Urine Negative (Negative); Blood, Urine Small mg/dL (Negative); Glucose,Urine (UA) Negative (Negative); Hyaline Casts,Urine 4 /LPF (0-3); Ketones,Urine Negative (Negative); Mucus,Urine Occasional /LPF (Occasional); Nitrite,Urine Negative (Negative); Protein,Urine Negative; RBC,Urine 3 /HPF (0-4); Squamous Epithelial Cell,Urine Occasional /HPF (0-10); Urine Color Amber (Yellow); Urine Urobilinogen < 2.0 EU/DL (0.2-1.0); WBC,Urine 7 /HPF (0-6)
[2017-07-05] MEDS: LEVOFLOXACIN INJ 750 MG in PREMIX 1 EACH IV SCH (00:58)
[2017-07-05] MEDS: PIPERACILLIN/TAZOBACTAM 3,375 MG in SODIUM CHLORIDE 0.9% 100 ML IV SCH ×3 (02:47→18:18)
[2017-07-05] MEDS: MEMANTINE 10 MG TABLET PO SCH (08:53)
[2017-07-05] MEDS: CILOSTAZOL 50 MG TABLET PO SCH ×2 (08:53→20:26)
[2017-07-05] MEDS: ESCITALOPRAM 10 MG TABLET PO SCH (08:53)
[2017-07-05] MEDS: ASPIRIN EC 81 MG TABLET PO SCH (08:53)
[2017-07-05] MEDS: FENOFIBRATE 145 MG TABLET PO SCH (08:53)
[2017-07-05] MEDS: TAMSULOSIN 0.4 MG CAPSULE PO SCH (08:53)
[2017-07-05] MEDS: MULTIVITAMIN (CENTRUM) TABLET PO SCH (08:53)
[2017-07-05] MEDS: FEXOFENADINE 180 MG TABLET PO SCH (08:53)
[2017-07-05] MEDS: SIMVASTATIN 20 MG TABLET PO SCH (08:53)
[2017-07-05] MEDS: DONEPEZIL 10 MG TABLET PO SCH (08:53)
[2017-07-05] MEDS: ASCORBIC ACID 500 MG TABLET PO SCH (08:53)
[2017-07-05] MEDS: CHOLECALCIFEROL 1,000 UNIT TABLET PO SCH (08:54)
--- NOTE | 2017-07-05 11:30 | Hospitalist Progress Note ---
Assessment and Plan (1) Altered mental status Status: Acute Assessment and plan: It appears patient is back to baseline mental status. He has an underlying dementia plan to bring his home long acting Nemanda. We will also start Remeron at night to stimulate appetite, get Dietitian consult and PT to evaluate. Current Visit: Yes (2) Community acquired pneumonia Status: Acute Assessment and plan: CXR done this am showed a progressive bilateral pneumonia with increased atelectasis and very small pleural effusions. plan continue IV antibiotics and bronchodilators PT consult Current Visit: Yes (3) Sepsis Status: Acute Assessment and plan: BC and UC are negative so far, continue with IV antibiotics. Current Visit: Yes (4) Coronary artery disease Status: Chronic Assessment and plan: Patient is hemodynamically stable. There is no report of recent chest pain, shortness of breath, palpitations, cardiac rhythm disturbance, or active CHF decompensation. Current Visit: Yes (5) Acute kidney injury Status: Acute Assessment and plan: Improved Current Visit: Yes (6) Alzheimer's disease Status: Acute Assessment and plan: with Parkinsons \\Plan Continue home meds. Current Visit: Yes (7) Petechiae Status: Acute Assessment and plan: on the lower left leg. Most likely from sepsis vs thrombocytopenia to r/o drugs Plan continue to watch Current Visit: Yes Hospitalist: Subjective Interval history: Patient seen this am. He was still really weak. was asking if patient could use his own anisa acting Nemanda. His left leg swelling has reduced and he just has some petechiae. He has poor appetite but his mental status appears to be at baseline. Exam - Constitutional Vitals: Period Temp Pulse Resp BP Sys/Ingram Pulse Ox Last 24 Hr 97.2 F-99 F 57-97 18-20 112-132/61-82 95-98 General appearance: no acute distress - Head Head exam: Present: normal inspection - Respiratory Respiratory exam: Present: clear to auscultation bilaterally - Cardiovascular Cardiovascular exam: Present: regular rate and rhythm - GI/Abdominal GI/Abdominal exam: Present: normal bowel sounds - Extremities Exam Extremities exam: Present: normal inspection - Neurological Exam Neurological exam: Present: alert Results - Labs CBC & BMP: 07/04/17 06:20 07/04/17 06:20 Lab Results: I have reviewed the past 24 hour labs
[2017-07-05] MEDS: MIRTAZAPINE 15 MG TABLET PO SCH (20:27)
[2017-07-06] MEDS: LEVOFLOXACIN INJ 750 MG in PREMIX 1 EACH IV SCH ×2 (01:12→23:34)
[2017-07-06] MEDS: PIPERACILLIN/TAZOBACTAM 3,375 MG in SODIUM CHLORIDE 0.9% 100 ML IV SCH ×3 (03:12→17:53)
[2017-07-06 06:20] LABS: Basophils % 0.5 % (0.0-0.8); Eosinophils # 0.1 10*3/uL (0.0-0.87); Eosinophils % 2.2 % (0.00-10.9); Hematocrit 26.6 VOL% (42.0-52.0); Immature Granulocytes % 5.7 %; Immature Granulocytes Absolute 0.23 #; Lymphocytes # 2.6 10*3/uL (1.4-4.0); Lymphocytes % 64.1 % (21.2-54.2); Mean Corpuscular HGB Conc 33.8 GM/DL (32-36); Mean Corpuscular Hemoglobin 30 PG (27-34); Mean Corpuscular Volume 87.2 FL (87-102); Mean Platelet Volume 9.9 FL (9.6-12.0); Monocytes # 0.2 10*3/uL (0.11-0.8); Neutrophils % 23.5 % (38.7-73.9); Platelet Count 111 T/CUMM (130-400); Red Blood Count 3.05 MC/CUMM (3.8-5.5); Red Cell Distribution Width 14.6 % (9.3-17.3)
[2017-07-06 06:46] LABS: Band Neutrophils 1 % (0-10); Lymphocytes 67 % (20-55); Myelocytes 2 %; Segmented Neutrophils 30 % (50-85)
[2017-07-06 06:48] LABS: Platelet Estimate Adequate; Total Cells Counted 100
[2017-07-06 06:52] LABS: Calcium 8.4 MG/DL (8.5-10.1); Osmolality,Calculated 288.6 MOS/KG (273-304); Potassium 3.4 MMOL/L (3.5-5.1)
[2017-07-06] MEDS: FENOFIBRATE 145 MG TABLET PO SCH (08:38)
[2017-07-06] MEDS: SIMVASTATIN 20 MG TABLET PO SCH (08:39)
[2017-07-06] MEDS: CILOSTAZOL 50 MG TABLET PO SCH ×2 (08:39→20:15)
[2017-07-06] MEDS: DONEPEZIL 10 MG TABLET PO SCH (08:39)
[2017-07-06] MEDS: FEXOFENADINE 180 MG TABLET PO SCH (08:39)
[2017-07-06] MEDS: ASPIRIN EC 81 MG TABLET PO SCH (08:39)
[2017-07-06] MEDS: ESCITALOPRAM 10 MG TABLET PO SCH (08:39)
[2017-07-06] MEDS: TAMSULOSIN 0.4 MG CAPSULE PO SCH (08:39)
[2017-07-06] MEDS: CHOLECALCIFEROL 1,000 UNIT TABLET PO SCH (08:39)
[2017-07-06] MEDS: ASCORBIC ACID 500 MG TABLET PO SCH (08:39)
[2017-07-06] MEDS: MULTIVITAMIN (CENTRUM) TABLET PO SCH (08:39)
[2017-07-06] MEDS: NAMENDA XR 28 MG CAPSULE PO SCH (08:40)
--- NOTE | 2017-07-06 11:40 | Hospitalist Progress Note ---
Assessment and Plan (1) Altered mental status Status: Acute Assessment and plan: It appears patient is back to baseline mental status. He has an underlying dementia plan continue current regime Current Visit: Yes (2) Community acquired pneumonia Status: Acute Assessment and plan: CXR showed a progressive bilateral pneumonia with increased atelectasis and very small pleural effusions. plan continue IV antibiotics and bronchodilators PT consult Current Visit: Yes (3) Sepsis Status: Acute Assessment and plan: BC and UC are negative so far, continue with IV antibiotics. Current Visit: Yes (4) Coronary artery disease Status: Chronic Assessment and plan: Patient is hemodynamically stable. There is no report of recent chest pain, shortness of breath, palpitations, cardiac rhythm disturbance, or active CHF decompensation. Current Visit: Yes (5) Acute kidney injury Status: Acute Assessment and plan: Improved Current Visit: Yes (6) Alzheimer's disease Status: Acute Assessment and plan: with Parkinsons Plan Continue home meds. Current Visit: Yes (7) Petechiae Status: Acute Assessment and plan: on the lower left leg. Most likely from sepsis vs thrombocytopenia to r/o drugs Plan continue to watch the leg and cbc in am. Current Visit: Yes Hospitalist: Subjective Interval history: Patient had a good night slept well, was still sleeping when I went to his room this am. No new complaints. Exam - Constitutional Vitals: Period Temp Pulse Resp BP Sys/Ingram Pulse Ox Last 24 Hr 97.2 F-98.9 F 65-109 18-20 104-152/57-80 94-98 General appearance: no acute distress - Head Head exam: Present: normal inspection - Respiratory Respiratory exam: Present: clear to auscultation bilaterally - Cardiovascular Cardiovascular exam: Present: regular rate and rhythm - GI/Abdominal GI/Abdominal exam: Present: normal bowel sounds - Extremities Exam Extremities exam: Present: normal inspection - Neurological Exam Neurological exam: Present: other (sleeping) Results - Labs CBC & BMP: 07/06/17 06:07 07/06/17 06:07 Lab Results: I have reviewed the past 24 hour labs
[2017-07-06] MEDS ORDERED: POTASSIUM CHLORIDE 20 MEQ/15 ML UDCUP PO ONE (11:42)
[2017-07-06] MEDS: MIRTAZAPINE 15 MG TABLET PO SCH (20:15)
[2017-07-07] MEDS: PIPERACILLIN/TAZOBACTAM 3,375 MG in SODIUM CHLORIDE 0.9% 100 ML IV SCH ×3 (03:37→18:25)
[2017-07-07 06:20] LABS: Basophils % 0.6 % (0.0-0.8); Eosinophils # 0.1 10*3/uL (0.0-0.87); Eosinophils % 1.8 % (0.00-10.9); Hematocrit 26.8 VOL% (42.0-52.0); Immature Granulocytes % 7.6 %; Immature Granulocytes Absolute 0.38 #; Lymphocytes # 2.9 10*3/uL (1.4-4.0); Lymphocytes % 58.8 % (21.2-54.2); Mean Corpuscular HGB Conc 33.6 GM/DL (32-36); Mean Corpuscular Hemoglobin 29 PG (27-34); Monocytes # 0.2 10*3/uL (0.11-0.8); Monocytes % 4.8 % (1.7-12.7); NRBC # 0.02 10*3/uL; Neutrophils # 1.3 10*3/uL (1.4-7.4); Neutrophils % 26.4 % (38.7-73.9); Platelet Count 145 T/CUMM (130-400); Red Blood Count 3.08 MC/CUMM (3.8-5.5); Red Cell Distribution Width 14.6 % (9.3-17.3)
[2017-07-07 06:45] LABS: Calcium 8.7 MG/DL (8.5-10.1); Osmolality,Calculated 287.7 MOS/KG (273-304); Potassium 3.8 MMOL/L (3.5-5.1)
[2017-07-07 06:47] LABS: Atypical Lymphocytes Moderate; Eosinophils 1 % (0-10); Lymphocytes 49 % (20-55); Myelocytes 1 %; Platelet Estimate Adequate; Polychromasia Slight; Segmented Neutrophils 46 % (50-85); Total Cells Counted 100
[2017-07-07] MEDS: ESCITALOPRAM 10 MG TABLET PO SCH (09:39)
[2017-07-07] MEDS: ASPIRIN EC 81 MG TABLET PO SCH (09:39)
[2017-07-07] MEDS: FENOFIBRATE 145 MG TABLET PO SCH (09:39)
[2017-07-07] MEDS: SIMVASTATIN 20 MG TABLET PO SCH (09:39)
[2017-07-07] MEDS: CHOLECALCIFEROL 1,000 UNIT TABLET PO SCH (09:39)
[2017-07-07] MEDS: CILOSTAZOL 50 MG TABLET PO SCH ×2 (09:39→21:30)
[2017-07-07] MEDS: DONEPEZIL 10 MG TABLET PO SCH (09:39)
[2017-07-07] MEDS: TAMSULOSIN 0.4 MG CAPSULE PO SCH (09:39)
[2017-07-07] MEDS: MULTIVITAMIN (CENTRUM) TABLET PO SCH (09:39)
[2017-07-07] MEDS: FEXOFENADINE 180 MG TABLET PO SCH (09:39)
[2017-07-07] MEDS: ASCORBIC ACID 500 MG TABLET PO SCH (09:40)
[2017-07-07] MEDS: NAMENDA XR 28 MG CAPSULE PO SCH (09:41)
--- NOTE | 2017-07-07 12:23 | Hospitalist Progress Note ---
Assessment and Plan (1) Altered mental status Status: Acute Assessment and plan: It appears patient is back to baseline mental status. He has an underlying dementia plan continue current regime Current Visit: Yes (2) Community acquired pneumonia Status: Acute Assessment and plan: CXR showed a progressive bilateral pneumonia with increased atelectasis and very small pleural effusions. plan continue IV antibiotics and bronchodilators continue with PT consult repeat CXR today hopefully dc in am Current Visit: Yes (3) Sepsis Status: Acute Assessment and plan: BC and UC are negative so far, continue with IV antibiotics. Current Visit: Yes (4) Coronary artery disease Status: Chronic Assessment and plan: Patient is hemodynamically stable. There is no report of recent chest pain, shortness of breath, palpitations, cardiac rhythm disturbance, or active CHF decompensation. Current Visit: Yes (5) Acute kidney injury Status: Acute Assessment and plan: Improved Current Visit: Yes (6) Alzheimer's disease Status: Acute Assessment and plan: with Parkinsons Plan Continue home meds. Current Visit: Yes (7) Petechiae Status: Acute Assessment and plan: on the lower left leg. Most likely from sepsis vs thrombocytopenia to r/o drugs. This is improving. Plan continue to watch the leg and cbc in am. Current Visit: Yes Hospitalist: Subjective Interval history: Patient states he feels better. No new issues. Exam - Constitutional Vitals: Period Temp Pulse Resp BP Sys/Ingram Pulse Ox Last 24 Hr 97.3 F-98.4 F 66-73 18-20 118-133/65-75 93-96 General appearance: no acute distress - Head Head exam: Present: normal inspection - Respiratory Respiratory exam: Present: clear to auscultation bilaterally - Cardiovascular Cardiovascular exam: Present: regular rate and rhythm - GI/Abdominal GI/Abdominal exam: Present: normal bowel sounds - Extremities Exam Extremities exam: Present: normal inspection - Neurological Exam Neurological exam: Present: alert Results - Labs CBC & BMP: 07/07/17 04:37 07/07/17 04:37 Lab Results: I have reviewed the past 24 hour labs
--- NOTE | 2017-07-07 18:28 | XRay Report ---
XR chest 1V portable Indication: Shortness of breath. Chest one view: Comparison 07/04/2017. Lungs remain markedly hypoinflated with persistent atelectasis. There is continued infiltrate medial right lung base, although it has improved slightly. Continued left perihilar atelectasis as well as bilateral apical pleural scarring is noted. Heart size remains normal. Impression: Improving right basilar pneumonia. PROCEDURE INTERPRETED AT [facility] DEPARTMENT OF RADIOLOGY Final Report Signed by: Grayson Tobar M.D.
[2017-07-07] MEDS: MIRTAZAPINE 15 MG TABLET PO SCH (21:30)
[2017-07-08] MEDS: LEVOFLOXACIN INJ 750 MG in PREMIX 1 EACH IV SCH (00:35)
[2017-07-08] MEDS: PIPERACILLIN/TAZOBACTAM 3,375 MG in SODIUM CHLORIDE 0.9% 100 ML IV SCH ×2 (02:04→09:29)
[2017-07-08 07:21] LABS: Basophils % 0.4 % (0.0-0.8); Eosinophils # 0.1 10*3/uL (0.0-0.87); Eosinophils % 2.1 % (0.00-10.9); Hematocrit 26.8 VOL% (42.0-52.0); Immature Granulocytes % 8.6 %; Lymphocytes # 2.6 10*3/uL (1.4-4.0); Lymphocytes % 55.9 % (21.2-54.2); Mean Corpuscular HGB Conc 33.6 GM/DL (32-36); Mean Corpuscular Hemoglobin 29 PG (27-34); Mean Corpuscular Volume 87.3 FL (87-102); Mean Platelet Volume 9.7 FL (9.6-12.0); Monocytes # 0.2 10*3/uL (0.11-0.8); Monocytes % 4.5 % (1.7-12.7); Neutrophils # 1.3 10*3/uL (1.4-7.4); Neutrophils % 28.5 % (38.7-73.9); Platelet Count 144 T/CUMM (130-400); Red Blood Count 3.07 MC/CUMM (3.8-5.5); Red Cell Distribution Width 14.4 % (9.3-17.3); White Blood Count 4.7 T/CUMM (4-12)
[2017-07-08 07:57] LABS: Calcium 8.5 MG/DL (8.5-10.1); Potassium 3.5 MMOL/L (3.5-5.1)
[2017-07-08 07:59] LABS: Eosinophils 6 % (0-10); Lymphocytes 55 % (20-55); Metamyelocytes 1 %; Nucleated Red Blood Cells 1 (0-5); Segmented Neutrophils 34 % (50-85); Total Cells Counted 100
[2017-07-08 08:00] LABS: Hypochromasia 1+; Microcytosis 1+
[2017-07-08 08:01] LABS: Ovalocytes Slight; Platelet Estimate Adequate
[2017-07-08] MEDS: ESCITALOPRAM 10 MG TABLET PO SCH (08:30)
[2017-07-08] MEDS: CILOSTAZOL 50 MG TABLET PO SCH (08:30)
[2017-07-08] MEDS: CHOLECALCIFEROL 1,000 UNIT TABLET PO SCH (08:30)
[2017-07-08] MEDS: ASCORBIC ACID 500 MG TABLET PO SCH (08:30)
[2017-07-08] MEDS: ASPIRIN EC 81 MG TABLET PO SCH (08:30)
[2017-07-08] MEDS: FENOFIBRATE 145 MG TABLET PO SCH (08:30)
[2017-07-08] MEDS: MULTIVITAMIN (CENTRUM) TABLET PO SCH (08:30)
[2017-07-08] MEDS: DONEPEZIL 10 MG TABLET PO SCH (08:30)
[2017-07-08] MEDS: TAMSULOSIN 0.4 MG CAPSULE PO SCH (08:31)
[2017-07-08] MEDS: FEXOFENADINE 180 MG TABLET PO SCH (08:31)
[2017-07-08] MEDS: SIMVASTATIN 20 MG TABLET PO SCH (08:31)
[2017-07-08] MEDS: NAMENDA XR 28 MG CAPSULE PO SCH (08:32)
--- NOTE | 2017-07-08 10:17 | Discharge Summary ---
<Lizeth Torres - Last Filed: 07/08/17 10:18> Hospital Course - Hospital Course Hospital Course: Mr Colón 76 y/o w/ PMHx of depression, dementia(Alzheimer Dz), dyslipidemia, presented to the ED 07/01/17 via EMS for further evaluation of fever and altered mental status. In ED: CXR: airways disease such as bronchitis or viral syndrome, pulmonary hypoinflation. Temperature 102.3; HR 80; Sat 95%, BP 83/59 ; LABS: H&H 9.5 &27.6, WBC 5.8; ABG: pH 7.434; pCO2 36.1; pO2 61.6; HCO3 24.5; O2 [id number]; BUN 25; Creatinine 1.40; Calcium 8.0; Alkaline Phosphatase < 10, Urinalyses negative. Hospitalist services consulted for admission 07/02/17 00:41 a.m. for further evaluation of AMS and Sepsis. Urine culture showed no growth; MRSA culture was negative; Influenza was negative; !)Blood culture final resulted streptococcus dysgalactia and 2nd blood culture showed no growth for final results. Patient admitted and IV hydration started; Antibiotic therapy(levaquin and zosyn); Neb breathing treatments; home medications continued. Throughout hospitalization patient continue to improve with treatment regimen. He developed some petechiae on the lower left leg which improved over time.Doppler showed no DVT. He was commenced on Remeron to stimulate his mood and appetite.He progressed with PT and repeat CXR showed improving right basilar pneumonia. Labs remained stable;Repeat BC and UC showed no growth. This am,- Patient continues to be hemodynamically stable without any elevation in temperature. Patient is feeling better and feel he has met optimum baseline mental status and improvements for discharge home plan for today. He will need to continue home medications as instructed and will need to follow up with primary care physician in 1week and we will arrange Home health and Home PT. Discharge Plan - Discharge Data Disposition: Home Health Service - Discharge Medications New Mirtazapine [Remeron] 15 mg PO BEDTIME #30 tablet Tamsulosin [Flomax] 0.4 mg PO DAILY #30 capsule Zinc Oxide 16% Paste [Nichole's Butt Paste] 1 applic TOP PRN PRN applic PRN Reason: Diaper Rash Levofloxacin Tab [Levaquin Tab] 750 mg PO DAILY #7 tablet Continue Fexofenadine [Nayla] 180 mg PO DAILY Aspirin EC Tab 81 mg PO DAILY Simvastatin 20 mg PO DAILY Donepezil HCl 10 mg PO DAILY Memantine HCl [Namenda XR] 28 mg PO DAILY Cilostazol 50 mg PO BID Cholecalciferol (Vitamin D3) [Vitamin D3] 1,000 unit PO DAILY Escitalopram [Lexapro] 10 mg PO DAILY Multivitamin (Centrum) [Centrum Tab] 1 tablet DAILY Fenofibrate [Tricor] 145 mg PO DAILY Ascorbic Acid [Vitamin C] 500 mg PO DAILY - Follow Up or Referral - Forms/Instructions Exam - Constitutional Vitals: Period Temp Pulse Resp BP Sys/Ingram Pulse Ox Last 24 Hr 97.3 F-97.9 F 63-74 16-20 121-146/65-76 88-96 Discharge Results Labs on day of discharge: Labs from last 24 hours 07/08/17 07/08/17 07:01 07:01 WBC 4.7 RBC 3.07 L Hgb 9.0 L Hct 26.8 L MCV 87.3 MCH 29 MCHC 33.6 RDW 14.4 Plt Count 144 MPV 9.7 Neut % (Auto) 28.5 L Lymph % (Auto) 55.9 H Catron % (Auto) 4.5 Eos % (Auto) 2.1 Baso % (Auto) 0.4 Neut # (Auto) 1.3 L Lymph # (Auto) 2.6 Catron # (Auto) 0.2 Eos # (Auto) 0.1 Baso # (Auto) 0.0 Total Counted 100 Immature Gran % 8.6 Nucleated RBC % 0.0 Immature Gran # 0.40 Segmented Neutrophils 34 L Lymphocytes 55 Monocytes 3 Eosinophils 6 Basophils 1.0 H Metamyelocytes 1 Nucleated RBCs 1 Nucleated RBCs # 0.00 Atypical Lymphocytes Moderat Platelet Estimate Adequate Immature Plt Fraction 0.0 Hypochromasia 1+ Microcytosis 1+ Ovalocytes Slight Morphology Comment Sodium 143 Potassium 3.5 Chloride 109 H Carbon Dioxide 29 Anion Gap 8.5 BUN 14 Creatinine 1.10 GFR Calculation 78 BUN/Creatinine Ratio 12.00 Glucose 83 Calculated Osmolality 284.0 Calcium 8.5 DS: Provider Date of admission: 07/02/17 00:49 Primary care physician: Abimael Welsh MD Attending physician on admission: Grayson Mancilla MD Consults: 07/02/17 02:41 Consult to Pastoral Services [CONS] Routine Comment: Pastoral Screen: Request Pharmacy Teacher Visit Pastoral Screen Source of Request: Family 07/04/17 11:57 Consult to Physical Therapy [CONS] Routine Reason for Physical Therapy: Evaluate and Treat 07/05/17 08:09 Consult to Dietitian [CONS] Routine Reason for Dietitian: Supplements and/or Snacks 07/07/17 10:42 Consult to Case Mgmt/Social Srvs [CONS] Routine Reason for Case Mgmt/Social Srvs: Home Health Consult Comment: also Physical Therapy at home Discharging clinician: Lizeth Torres NP <Tanisha Truong - Last Filed: 07/08/17 12:15> Hospital Course - Time spent with patient Time with patient DS: Greater than 30 minutes (Time spent 35mins) Diagnosis - Discharge Diagnosis (1) Altered mental status Status: Acute (2) Community acquired pneumonia Status: Acute (3) Sepsis Status: Acute (4) Coronary artery disease Status: Chronic (5) Acute kidney injury Status: Acute (6) Alzheimer's disease Status: Acute (7) Petechiae Status: Acute Discharge Plan - Discharge Data Condition at Discharge: Stable Discharge Diet: advance to your usual diet Activity: resume usual activities as tolerated - Forms/Instructions Additional Discharge Instructions: Follow with PCP in 1week Exam - Constitutional General appearance: no acute distress - Head Head exam: Present: normal inspection - Respiratory Respiratory exam: Present: clear to auscultation bilaterally - Cardiovascular Cardiovascular exam: Present: regular rate and rhythm - GI/Abdominal GI/Abdominal exam: Present: normal bowel sounds - Extremities Exam Extremities exam: Present: normal inspection - Neurological Exam Neurological exam: Present: alert, oriented X3
[2017-07-08 12:03] VITALS: BP 121/73
== END 2017-07-08 15:13 | disposition home health service (06) | DRG 871 ==
LOC: EDUNIT# → EDBD → N.ED 20:53 → N.EDINP 07-02 00:48 → SUATTDRO 07-02 00:48 → N.ICU 07-02 01:11 → N.5E 07-03 18:16
PROVIDERS: ADMIT Internal Medicine; ATTEND Internal Medicine

== ENCOUNTER 2018-07-06 10:34 | Inpatient (IN) ==
[2018-07-06] MEDS ORDERED: SODIUM CHLORIDE 0.9% 1,000 ML IV STA (10:58)
[2018-07-06 11:04] LABS: Basophils % 0.2 % (0.0-0.8); Hematocrit 29.4 VOL% (42.0-52.0); Hemoglobin 9.6 GM/DL (14.0-18.0); Immature Granulocytes % 2.2 %; Immature Granulocytes Absolute 0.14 #; Lymphocytes # 3.2 10*3/uL (1.4-4.0); Lymphocytes % 49.8 % (21.2-54.2); Mean Corpuscular HGB Conc 32.7 GM/DL (32-36); Mean Corpuscular Hemoglobin 30 PG (27-34); Mean Corpuscular Volume 90.5 FL (87-102); Mean Platelet Volume 9.4 FL (9.6-12.0); Monocytes # 0.2 10*3/uL (0.11-0.8); Monocytes % 3.2 % (1.7-12.7); Neutrophils # 2.8 10*3/uL (1.4-7.4); Neutrophils % 44.6 % (38.7-73.9); Platelet Count 118 T/CUMM (130-400); Red Blood Count 3.25 MC/CUMM (3.8-5.5); Red Cell Distribution Width 15.2 % (9.3-17.3); White Blood Count 6.3 T/CUMM (4-12)
[2018-07-06 11:19] LABS: Albumin 3.4 G/DL (3.4-5.0); Calcium 8.9 MG/DL (8.5-10.1); Potassium 2.9 MMOL/L (3.5-5.1)
[2018-07-06 11:20] LABS: Osmolality,Calculated 285.3 MOS/KG (273-304)
[2018-07-06 11:23] LABS: Bilirubin,Total 0.4 MG/DL (0.2-1.0)
[2018-07-06 11:25] LABS: Total Protein 6.8 G/DL (6.4-8.3)
[2018-07-06 11:53] LABS: Apearance,Urine Slightly Hazy (Clear); Bacteria,Urine Occasional /HPF (Few); Bilirubin,Urine Negative (Negative); Blood, Urine Negative (Negative); Glucose,Urine (UA) Negative (Negative); Ketones,Urine Negative (Negative); Mucus,Urine Many /LPF (Occasional); Nitrite,Urine Negative (Negative); Protein,Urine Negative; RBC,Urine 1 /HPF (0-4); Urine Color Yellow (Yellow); Urine Specific Gravity 1.019 (1.001-1.035); Urine Urobilinogen < 2.0 EU/DL (0.2-1.0); WBC,Urine 1 /HPF (0-6)
[2018-07-06] MEDS ORDERED: POTASSIUM CHLORIDE 20 MEQ TABLET PO STA (12:15)
[2018-07-06 15:15] LABS: Barbiturates Screen,Urine Negative (Negative); Benzodiazepines Screen,Urine Negative (Negative); Cannabinoid Screen,Urine Negative (Negative); Opiate Screen,Urine Negative (Negative); Phencyclidine Screen,Urine Negative (Negative)
[2018-07-06] MEDS ORDERED: hydrALAZINE 20 MG/1 ML VIAL IV PRN (16:19)
[2018-07-06] MEDS ORDERED: ONDANSETRON 4 MG/2 ML VIAL IV PRN (16:19)
[2018-07-06] MEDS: DEXT 5% NACL 0.9% KCL 40 MEQ 40 MEQ/1,000 ML BAG IV SCH (17:12)
[2018-07-06] MEDS: ceFAZolin 1,000 MG in SYRINGE 1 EACH IV SCH ×2 (17:12→23:52)
[2018-07-06] MEDS ORDERED: ACETAMINOPHEN 325 MG SUPP RECTAL PRN (17:36)
[2018-07-06] MEDS: ROSUVASTATIN 20 MG TABLET PO SCH (22:06)
[2018-07-06] MEDS: MEMANTINE 10 MG TABLET PO SCH (22:06)
[2018-07-06] MEDS: ESCITALOPRAM 10 MG TABLET PO SCH (22:06)
[2018-07-06] MEDS: CILOSTAZOL 50 MG TABLET PO SCH (22:06)
[2018-07-06] MEDS: ASPIRIN EC 81 MG TABLET PO SCH (22:07)
[2018-07-07] MEDS: DEXT 5% NACL 0.9% KCL 40 MEQ 40 MEQ/1,000 ML BAG IV SCH ×3 (03:15→23:00)
[2018-07-07 05:48] LABS: Basophils % 0.2 % (0.0-0.8); Hematocrit 25.8 VOL% (42.0-52.0); Hemoglobin 8.1 GM/DL (14.0-18.0); Immature Granulocytes % 1.5 %; Immature Granulocytes Absolute 0.08 #; Lymphocytes # 2.6 10*3/uL (1.4-4.0); Lymphocytes % 46.6 % (21.2-54.2); Mean Corpuscular HGB Conc 31.4 GM/DL (32-36); Mean Corpuscular Hemoglobin 29 PG (27-34); Mean Corpuscular Volume 91.5 FL (87-102); Mean Platelet Volume 9.8 FL (9.6-12.0); Monocytes # 0.2 10*3/uL (0.11-0.8); Neutrophils # 2.6 10*3/uL (1.4-7.4); Neutrophils % 47.7 % (38.7-73.9); Platelet Count 97 T/CUMM (130-400); Red Blood Count 2.82 MC/CUMM (3.8-5.5); Red Cell Distribution Width 15.8 % (9.3-17.3); White Blood Count 5.5 T/CUMM (4-12)
[2018-07-07 06:13] LABS: Hypochromasia 1+; Microcytosis 1+; Ovalocytes Few
[2018-07-07 06:14] LABS: Platelet Estimate Decreased
[2018-07-07 06:15] LABS: Calcium 8.1 MG/DL (8.5-10.1); Osmolality,Calculated 293.7 MOS/KG (273-304); Potassium 3.6 MMOL/L (3.5-5.1)
[2018-07-07] MEDS: ceFAZolin 1,000 MG in SYRINGE 1 EACH IV SCH ×3 (08:16→23:30)
[2018-07-07] MEDS: DONEPEZIL 10 MG TABLET PO SCH (09:35)
[2018-07-07] MEDS: CILOSTAZOL 50 MG TABLET PO SCH ×2 (09:36→20:38)
[2018-07-07] MEDS: MEMANTINE 10 MG TABLET PO SCH ×2 (09:36→20:38)
[2018-07-07] MEDS: METOPROLOL SUCCINATE XL 25 MG TABLET PO SCH (09:36)
[2018-07-07] MEDS: PANTOPRAZOLE 40 MG VIAL IV SCH (09:37)
[2018-07-07] MEDS: VANCOMYCIN 50 MG/ML 60 ML/BOTTLE PO SCH ×3 (15:30→23:18)
[2018-07-07 18:52] LABS: Hematocrit 26.8 VOL% (42.0-52.0); Hemoglobin 8.5 GM/DL (14.0-18.0)
[2018-07-07] MEDS: ROSUVASTATIN 20 MG TABLET PO SCH (20:38)
[2018-07-07] MEDS: ASPIRIN EC 81 MG TABLET PO SCH (20:38)
[2018-07-07] MEDS: ESCITALOPRAM 10 MG TABLET PO SCH (20:38)
[2018-07-07] MEDS: ACETAMINOPHEN 325 MG TABLET PO PRN (21:36)
[2018-07-08 04:54] LABS: Basophils % 0.2 % (0.0-0.8); Hematocrit 29.1 VOL% (42.0-52.0); Immature Granulocytes % 0.6 %; Immature Granulocytes Absolute 0.04 #; Lymphocytes # 3.6 10*3/uL (1.4-4.0); Mean Corpuscular HGB Conc 30.9 GM/DL (32-36); Mean Corpuscular Hemoglobin 29 PG (27-34); Mean Corpuscular Volume 92.7 FL (87-102); Mean Platelet Volume 10.6 FL (9.6-12.0); Monocytes # 0.3 10*3/uL (0.11-0.8); Neutrophils # 2.5 10*3/uL (1.4-7.4); Neutrophils % 38.2 % (38.7-73.9); Platelet Count 106 T/CUMM (130-400); Red Blood Count 3.14 MC/CUMM (3.8-5.5); Red Cell Distribution Width 15.5 % (9.3-17.3); White Blood Count 6.5 T/CUMM (4-12)
[2018-07-08 05:02] LABS: Calcium 8.4 MG/DL (8.5-10.1); Osmolality,Calculated 289.8 MOS/KG (273-304); Potassium 3.5 MMOL/L (3.5-5.1)
[2018-07-08] MEDS: VANCOMYCIN 50 MG/ML 60 ML/BOTTLE PO SCH ×4 (05:08→23:41)
[2018-07-08 05:19] LABS: Band Neutrophils 6 % (0-10); Lymphocytes 60 % (20-55); Macrocytosis 2+; Platelet Estimate Decreased; Segmented Neutrophils 30 % (50-85); Total Cells Counted 100
[2018-07-08] MEDS: DEXT 5% NACL 0.9% KCL 40 MEQ 40 MEQ/1,000 ML BAG IV SCH ×2 (08:19→20:39)
[2018-07-08] MEDS: PANTOPRAZOLE 40 MG VIAL IV SCH (08:20)
[2018-07-08] MEDS: ceFAZolin 1,000 MG in SYRINGE 1 EACH IV SCH ×3 (08:20→23:42)
[2018-07-08] MEDS: METOPROLOL SUCCINATE XL 25 MG TABLET PO SCH (08:20)
[2018-07-08] MEDS: CILOSTAZOL 50 MG TABLET PO SCH ×2 (08:21→20:45)
[2018-07-08] MEDS: DONEPEZIL 10 MG TABLET PO SCH (08:21)
[2018-07-08] MEDS: MEMANTINE 10 MG TABLET PO SCH ×2 (08:21→20:46)
[2018-07-08] MEDS: ACETAMINOPHEN 325 MG TABLET PO PRN (19:38)
[2018-07-08] MEDS: ESCITALOPRAM 10 MG TABLET PO SCH (20:46)
[2018-07-08] MEDS: ROSUVASTATIN 20 MG TABLET PO SCH (20:46)
[2018-07-08] MEDS: ASPIRIN EC 81 MG TABLET PO SCH (20:46)
[2018-07-09 06:10] LABS: Basophils % 0.2 % (0.0-0.8); Eosinophils % 0.4 % (0.00-10.9); Hematocrit 25.6 VOL% (42.0-52.0); Hemoglobin 8.3 GM/DL (14.0-18.0); Immature Granulocytes % 1.3 %; Immature Granulocytes Absolute 0.06 #; Lymphocytes # 3.1 10*3/uL (1.4-4.0); Lymphocytes % 65.3 % (21.2-54.2); Mean Corpuscular HGB Conc 32.4 GM/DL (32-36); Mean Corpuscular Hemoglobin 29 PG (27-34); Mean Corpuscular Volume 89.5 FL (87-102); Mean Platelet Volume 9.7 FL (9.6-12.0); Monocytes # 0.2 10*3/uL (0.11-0.8); Monocytes % 3.8 % (1.7-12.7); Neutrophils # 1.4 10*3/uL (1.4-7.4); Platelet Count 115 T/CUMM (130-400); Red Blood Count 2.86 MC/CUMM (3.8-5.5); Red Cell Distribution Width 15.4 % (9.3-17.3); White Blood Count 4.7 T/CUMM (4-12)
[2018-07-09] MEDS: VANCOMYCIN 50 MG/ML 60 ML/BOTTLE PO SCH ×4 (06:15→23:15)
[2018-07-09 06:31] LABS: Band Neutrophils 1 % (0-10); Hypochromasia 1+; Lymphocytes 60 % (20-55); Ovalocytes Slight; Platelet Estimate Decreased; Segmented Neutrophils 37 % (50-85); Total Cells Counted 100
[2018-07-09 06:32] LABS: Atypical Lymphocytes Few; Microcytosis Slight
[2018-07-09 06:36] LABS: Calcium 8.1 MG/DL (8.5-10.1); Osmolality,Calculated 289.6 MOS/KG (273-304); Potassium 3.4 MMOL/L (3.5-5.1)
[2018-07-09] MEDS: DEXT 5% NACL 0.9% KCL 40 MEQ 40 MEQ/1,000 ML BAG IV SCH ×2 (07:37→18:15)
[2018-07-09] MEDS: DONEPEZIL 10 MG TABLET PO SCH (10:16)
[2018-07-09] MEDS: CILOSTAZOL 50 MG TABLET PO SCH ×2 (10:17→21:02)
[2018-07-09] MEDS: METOPROLOL SUCCINATE XL 25 MG TABLET PO SCH (10:17)
[2018-07-09] MEDS: MEMANTINE 10 MG TABLET PO SCH ×2 (10:17→21:02)
[2018-07-09] MEDS: PANTOPRAZOLE 40 MG VIAL IV SCH (10:19)
[2018-07-09] MEDS: ceFAZolin 1,000 MG in SYRINGE 1 EACH IV SCH ×2 (10:21→17:00)
[2018-07-09] MEDS ORDERED: SODIUM CHLORIDE 0.9% 1,000 ML IV PRN (12:32)
[2018-07-09] MEDS: ESCITALOPRAM 10 MG TABLET PO SCH (21:02)
[2018-07-09] MEDS: ROSUVASTATIN 20 MG TABLET PO SCH (21:02)
[2018-07-09] MEDS: ASPIRIN EC 81 MG TABLET PO SCH (21:02)
[2018-07-09] MEDS: QUEtiapine 25 MG TABLET PO SCH (21:02)
[2018-07-10] MEDS: ceFAZolin 1,000 MG in SYRINGE 1 EACH IV SCH ×3 (00:30→16:50)
[2018-07-10] MEDS: VANCOMYCIN 50 MG/ML 60 ML/BOTTLE PO SCH ×3 (05:18→18:12)
[2018-07-10 05:21] LABS: Basophils % 0.2 % (0.0-0.8); Eosinophils # 0.1 10*3/uL (0.0-0.87); Eosinophils % 1.3 % (0.00-10.9); Hematocrit 26.5 VOL% (42.0-52.0); Hemoglobin 8.8 GM/DL (14.0-18.0); Immature Granulocytes % 1.9 %; Immature Granulocytes Absolute 0.12 #; Lymphocytes # 4.5 10*3/uL (1.4-4.0); Lymphocytes % 72.6 % (21.2-54.2); Mean Corpuscular HGB Conc 33.2 GM/DL (32-36); Mean Corpuscular Hemoglobin 28 PG (27-34); Mean Corpuscular Volume 85.5 FL (87-102); Mean Platelet Volume 9.9 FL (9.6-12.0); Monocytes # 0.2 10*3/uL (0.11-0.8); Monocytes % 3.4 % (1.7-12.7); Neutrophils # 1.3 10*3/uL (1.4-7.4); Neutrophils % 20.6 % (38.7-73.9); Platelet Count 121 T/CUMM (130-400); White Blood Count 6.2 T/CUMM (4-12)
[2018-07-10 05:48] LABS: Atypical Lymphocytes Few; Eosinophils 4 % (0-10); Hypochromasia 1+; Lymphocytes 61 % (20-55); Microcytosis Slight; Platelet Estimate Normal; Segmented Neutrophils 28 % (50-85); Total Cells Counted 100
[2018-07-10 05:50] LABS: Calcium 7.8 MG/DL (8.5-10.1); Osmolality,Calculated 286.6 MOS/KG (273-304); Potassium 3.4 MMOL/L (3.5-5.1)
[2018-07-10] MEDS: MEMANTINE 10 MG TABLET PO SCH ×2 (09:48→21:45)
[2018-07-10] MEDS: DONEPEZIL 10 MG TABLET PO SCH (09:48)
[2018-07-10] MEDS: METOPROLOL SUCCINATE XL 25 MG TABLET PO SCH (09:49)
[2018-07-10] MEDS: CILOSTAZOL 50 MG TABLET PO SCH ×2 (09:49→21:45)
[2018-07-10] MEDS: PANTOPRAZOLE 40 MG VIAL IV SCH (09:50)
[2018-07-10] MEDS: POTASSIUM CHLORIDE 20 MEQ TABLET PO PRN ×3 (12:27→21:45)
[2018-07-10] MEDS: DEXT 5% NACL 0.9% KCL 40 MEQ 40 MEQ/1,000 ML BAG IV SCH (15:00)
[2018-07-10] MEDS: ASPIRIN EC 81 MG TABLET PO SCH (21:45)
[2018-07-10] MEDS: ESCITALOPRAM 10 MG TABLET PO SCH (21:45)
[2018-07-10] MEDS: ROSUVASTATIN 20 MG TABLET PO SCH (21:45)
[2018-07-10] MEDS: QUEtiapine 25 MG TABLET PO SCH (21:45)
[2018-07-11] MEDS: DEXT 5% NACL 0.9% KCL 40 MEQ 40 MEQ/1,000 ML BAG IV SCH ×2 (00:04→15:00)
[2018-07-11] MEDS: VANCOMYCIN 50 MG/ML 60 ML/BOTTLE PO SCH ×6 (00:04→23:40)
[2018-07-11] MEDS: ceFAZolin 1,000 MG in SYRINGE 1 EACH IV SCH ×4 (00:04→23:41)
[2018-07-11 05:26] LABS: Calcium 8.2 MG/DL (8.5-10.1); Osmolality,Calculated 283.8 MOS/KG (273-304); Potassium 4.1 MMOL/L (3.5-5.1)
[2018-07-11 06:49] LABS: Basophils % 0.4 % (0.0-0.8); Eosinophils # 0.1 10*3/uL (0.0-0.87); Eosinophils % 1.5 % (0.00-10.9); Hematocrit 28.2 VOL% (42.0-52.0); Hemoglobin 9.2 GM/DL (14.0-18.0); Immature Granulocytes % 4.6 %; Immature Granulocytes Absolute 0.31 #; Lymphocytes # 4.5 10*3/uL (1.4-4.0); Lymphocytes % 66.4 % (21.2-54.2); Mean Corpuscular HGB Conc 32.6 GM/DL (32-36); Mean Corpuscular Hemoglobin 29 PG (27-34); Mean Corpuscular Volume 87.9 FL (87-102); Mean Platelet Volume 9.7 FL (9.6-12.0); Monocytes # 0.2 10*3/uL (0.11-0.8); Monocytes % 3.6 % (1.7-12.7); Neutrophils # 1.6 10*3/uL (1.4-7.4); Neutrophils % 23.5 % (38.7-73.9); Platelet Count 124 T/CUMM (130-400); Red Blood Count 3.21 MC/CUMM (3.8-5.5); Red Cell Distribution Width 15.8 % (9.3-17.3); White Blood Count 6.7 T/CUMM (4-12)
[2018-07-11] MEDS: DONEPEZIL 10 MG TABLET PO SCH (09:06)
[2018-07-11] MEDS: CILOSTAZOL 50 MG TABLET PO SCH ×2 (09:06→20:06)
[2018-07-11] MEDS: METOPROLOL SUCCINATE XL 25 MG TABLET PO SCH (09:06)
[2018-07-11] MEDS: MEMANTINE 10 MG TABLET PO SCH ×2 (09:06→20:06)
[2018-07-11] MEDS: PANTOPRAZOLE 40 MG VIAL IV SCH (09:06)
[2018-07-11 11:03] LABS: Band Neutrophils 3 % (0-10); Eosinophils 3 % (0-10); Lymphocytes 61 % (20-55); Polychromasia Slight; Reactive Lymphocytes 2+; Segmented Neutrophils 24 % (50-85); Total Cells Counted 100
[2018-07-11 11:04] LABS: Hypochromasia Slight; Platelet Estimate Adequate
[2018-07-11] MEDS: QUEtiapine 25 MG TABLET PO SCH (20:06)
[2018-07-11] MEDS: ESCITALOPRAM 10 MG TABLET PO SCH (20:06)
[2018-07-11] MEDS: ROSUVASTATIN 20 MG TABLET PO SCH (20:06)
[2018-07-11] MEDS: ASPIRIN EC 81 MG TABLET PO SCH (20:06)
[2018-07-12 04:51] LABS: Basophils % 0.3 % (0.0-0.8); Eosinophils # 0.1 10*3/uL (0.0-0.87); Eosinophils % 1.4 % (0.00-10.9); Hematocrit 27.5 VOL% (42.0-52.0); Hemoglobin 9.1 GM/DL (14.0-18.0); Immature Granulocytes % 6.1 %; Immature Granulocytes Absolute 0.47 #; Lymphocytes # 4.8 10*3/uL (1.4-4.0); Lymphocytes % 62.1 % (21.2-54.2); Mean Corpuscular HGB Conc 33.1 GM/DL (32-36); Mean Corpuscular Hemoglobin 29 PG (27-34); Mean Corpuscular Volume 86.5 FL (87-102); Mean Platelet Volume 10.1 FL (9.6-12.0); Monocytes # 0.3 10*3/uL (0.11-0.8); Monocytes % 3.5 % (1.7-12.7); Neutrophils # 2.1 10*3/uL (1.4-7.4); Neutrophils % 26.6 % (38.7-73.9); Platelet Count 155 T/CUMM (130-400); Red Blood Count 3.18 MC/CUMM (3.8-5.5); Red Cell Distribution Width 15.4 % (9.3-17.3); White Blood Count 7.8 T/CUMM (4-12)
[2018-07-12 05:25] LABS: Calcium 8.4 MG/DL (8.5-10.1); Potassium 3.7 MMOL/L (3.5-5.1)
[2018-07-12] MEDS: VANCOMYCIN 50 MG/ML 60 ML/BOTTLE PO SCH ×3 (06:03→17:48)
[2018-07-12] MEDS: POTASSIUM CHLORIDE 20 MEQ TABLET PO PRN (06:04)
[2018-07-12 08:10] LABS: Lymphocytes 53 % (20-55); Platelet Estimate Adequate; Polychromasia Slight; Reactive Lymphocytes 1+; Segmented Neutrophils 38 % (50-85); Total Cells Counted 100
[2018-07-12] MEDS: ceFAZolin 1,000 MG in SYRINGE 1 EACH IV SCH ×2 (09:21→16:45)
[2018-07-12] MEDS: DONEPEZIL 10 MG TABLET PO SCH (09:22)
[2018-07-12] MEDS: METOPROLOL SUCCINATE XL 25 MG TABLET PO SCH (09:22)
[2018-07-12] MEDS: MEMANTINE 10 MG TABLET PO SCH ×2 (09:22→20:43)
[2018-07-12] MEDS: CILOSTAZOL 50 MG TABLET PO SCH ×2 (09:22→20:42)
[2018-07-12] MEDS: PANTOPRAZOLE 40 MG VIAL IV SCH (09:30)
[2018-07-12] MEDS: DEXT 5% NACL 0.9% KCL 40 MEQ 40 MEQ/1,000 ML BAG IV SCH (15:00)
[2018-07-12] MEDS: ESCITALOPRAM 10 MG TABLET PO SCH (20:42)
[2018-07-12] MEDS: ROSUVASTATIN 20 MG TABLET PO SCH (20:42)
[2018-07-12] MEDS: ASPIRIN EC 81 MG TABLET PO SCH (20:42)
[2018-07-12] MEDS: QUEtiapine 25 MG TABLET PO SCH (20:42)
[2018-07-13] MEDS: DEXT 5% NACL 0.9% KCL 40 MEQ 40 MEQ/1,000 ML BAG IV SCH ×2 (02:45→14:15)
[2018-07-13] MEDS: VANCOMYCIN 50 MG/ML 60 ML/BOTTLE PO SCH ×4 (06:00→17:56)
[2018-07-13 06:38] LABS: Basophils % 0.7 % (0.0-0.8); Eosinophils # 0.1 10*3/uL (0.0-0.87); Eosinophils % 1.7 % (0.00-10.9); Hemoglobin 9.3 GM/DL (14.0-18.0); Immature Granulocytes % 8.5 %; Lymphocytes # 3.5 10*3/uL (1.4-4.0); Lymphocytes % 59.3 % (21.2-54.2); Mean Corpuscular HGB Conc 33.2 GM/DL (32-36); Mean Corpuscular Hemoglobin 30 PG (27-34); Mean Corpuscular Volume 89.2 FL (87-102); Mean Platelet Volume 9.8 FL (9.6-12.0); Monocytes # 0.2 10*3/uL (0.11-0.8); Monocytes % 3.1 % (1.7-12.7); Neutrophils # 1.6 10*3/uL (1.4-7.4); Neutrophils % 26.7 % (38.7-73.9); Platelet Count 174 T/CUMM (130-400); Red Blood Count 3.14 MC/CUMM (3.8-5.5); Red Cell Distribution Width 15.5 % (9.3-17.3); White Blood Count 5.9 T/CUMM (4-12)
[2018-07-13 07:01] LABS: Band Neutrophils 3 % (0-10); Eosinophils 3 % (0-10); Hypochromasia 1+; Lymphocytes 57 % (20-55); Platelet Estimate Adequate; Segmented Neutrophils 33 % (50-85); Total Cells Counted 100
[2018-07-13 07:02] LABS: Atypical Lymphocytes Few
[2018-07-13 07:03] LABS: Calcium 8.7 MG/DL (8.5-10.1); Osmolality,Calculated 283.8 MOS/KG (273-304); Potassium 3.9 MMOL/L (3.5-5.1)
[2018-07-13] MEDS: METOPROLOL SUCCINATE XL 25 MG TABLET PO SCH (08:48)
[2018-07-13] MEDS: CILOSTAZOL 50 MG TABLET PO SCH ×2 (08:48→20:29)
[2018-07-13] MEDS: MEMANTINE 10 MG TABLET PO SCH ×2 (08:48→20:30)
[2018-07-13] MEDS: DONEPEZIL 10 MG TABLET PO SCH (08:48)
[2018-07-13] MEDS: PANTOPRAZOLE 40 MG VIAL IV SCH (08:49)
[2018-07-13] MEDS: ceFAZolin 1,000 MG in SYRINGE 1 EACH IV SCH ×3 (08:49→17:56)
[2018-07-13] MEDS: QUEtiapine 25 MG TABLET PO SCH (20:30)
[2018-07-13] MEDS: ESCITALOPRAM 10 MG TABLET PO SCH (20:30)
[2018-07-13] MEDS: ASPIRIN EC 81 MG TABLET PO SCH (20:30)
[2018-07-13] MEDS: ROSUVASTATIN 20 MG TABLET PO SCH (20:30)
[2018-07-14] MEDS: ceFAZolin 1,000 MG in SYRINGE 1 EACH IV SCH ×2 (01:00→09:54)
[2018-07-14] MEDS: VANCOMYCIN 50 MG/ML 60 ML/BOTTLE PO SCH ×3 (01:00→13:43)
[2018-07-14] MEDS: DEXT 5% NACL 0.9% KCL 40 MEQ 40 MEQ/1,000 ML BAG IV SCH ×2 (06:10→15:00)
[2018-07-14] MEDS ORDERED: MEMANTINE 10 MG TABLET PO SCH (09:00)
[2018-07-14] MEDS: DONEPEZIL 10 MG TABLET PO SCH (09:55)
[2018-07-14] MEDS: METOPROLOL SUCCINATE XL 25 MG TABLET PO SCH (09:56)
[2018-07-14] MEDS: CILOSTAZOL 50 MG TABLET PO SCH (09:56)
[2018-07-14] MEDS: PANTOPRAZOLE 40 MG VIAL IV SCH (10:00)
[2018-07-14] MEDS ORDERED: ZINC OXIDE PASTE 113 GM TUBE TOP SCH (11:30)
[2018-07-14 11:47] VITALS: BP 135/70
== END 2018-07-14 15:05 | DRG 603 ==
LOC: EDUNIT# → EDBD → N.ED 10:34 → N.EDINP 12:11 → N.ICU 13:24 → N.3E 07-08 15:10
PROVIDERS: ADMIT Family Medicine; ATTEND Family Medicine

== ENCOUNTER 2018-11-17 15:00 | Inpatient (IN) ==
[2018-11-17] MEDS ORDERED: AMIODARONE INJ 150 MG in DEXTROSE 5% 100 ML IV STA (15:32)
[2018-11-17] MEDS ORDERED: AMIODARONE 150 MG/3 ML VIAL ONE (15:33)
[2018-11-17 15:39] LABS: Basophils % 0.4 % (0.0-0.8); Eosinophils # 0.1 10*3/uL (0.0-0.87); Eosinophils % 0.6 % (0.00-10.9); Hematocrit 32.1 VOL% (42.0-52.0); Hemoglobin 10.2 GM/DL (14.0-18.0); Immature Granulocytes % 2.5 %; Immature Granulocytes Absolute 0.27 #; Lymphocytes # 6.5 10*3/uL (1.4-4.0); Lymphocytes % 60.9 % (21.2-54.2); Mean Corpuscular HGB Conc 31.8 GM/DL (32-36); Mean Corpuscular Hemoglobin 29 PG (27-34); Mean Corpuscular Volume 89.9 FL (87-102); Monocytes # 0.4 10*3/uL (0.11-0.8); Monocytes % 4.1 % (1.7-12.7); Neutrophils # 3.4 10*3/uL (1.4-7.4); Neutrophils % 31.5 % (38.7-73.9); Platelet Count 266 T/CUMM (130-400); Red Blood Count 3.57 MC/CUMM (3.8-5.5); Red Cell Distribution Width 14.8 % (9.3-17.3); White Blood Count 10.7 T/CUMM (4-12)
[2018-11-17 15:44] LABS: INR 1.3; PT Patient Result 13.7 SECS; Partial Thromboplastin Time 27.3 SECS (0-40)
[2018-11-17 15:59] LABS: Albumin 2.7 G/DL (3.4-5.0); Bilirubin,Total 0.4 MG/DL (0.2-1.0); Calcium 8.8 MG/DL (8.5-10.1); Osmolality,Calculated 285.3 MOS/KG (273-304); Potassium 3.4 MMOL/L (3.5-5.1); Thyroid Stimulating Hormone 2.37 uIU/ml (0.358-3.74)
[2018-11-17] MEDS: AMIODARONE INJ 450 MG in DEXTROSE 5% 241 ML IV SCH (15:59)
[2018-11-17] MEDS ORDERED: LEVOFLOXACIN INJ 500 MG in PREMIX 1 EACH IV STA (16:01)
[2018-11-17] MEDS ORDERED: cefTRIAXone 1,000 MG in SODIUM CHLORIDE 0.9% 100 ML IV STA (16:02)
[2018-11-17 16:20] LABS: Eosinophils 1 % (0-10); Hypochromasia 1+; Lymphocytes 52 % (20-55); Segmented Neutrophils 44 % (50-85); Total Cells Counted 100
[2018-11-17 16:22] LABS: Ovalocytes Few; Platelet Estimate Normal
[2018-11-17 16:23] LABS: Atypical Lymphocytes Few; Smudge Cells Few
[2018-11-17] MEDS ORDERED: ONDANSETRON 4 MG/2 ML VIAL IV PRN (17:03)
[2018-11-17] MEDS ORDERED: ACETAMINOPHEN 325 MG TABLET PO PRN (17:03)
[2018-11-17] MEDS ORDERED: ENOXAPARIN 40 MG/0.4 ML SYRINGE SUBCUT SCH (17:30)
[2018-11-17 18:31] LABS: Amorphous Crystals,Urine Occasional /HPF (Few); Apearance,Urine Slightly Hazy (Clear); Bacteria,Urine Occasional /HPF (Few); Bilirubin,Urine Negative (Negative); Blood, Urine Negative (Negative); Glucose,Urine (UA) Negative (Negative); Ketones,Urine Negative (Negative); Mucus,Urine Occasional /LPF (Occasional); Nitrite,Urine Negative (Negative); Protein,Urine Negative; RBC,Urine 1 /HPF (0-4); Urine Color Yellow (Yellow); Urine Specific Gravity 1.012 (1.001-1.035); Urine Urobilinogen < 2.0 EU/DL (0.2-1.0); WBC,Urine 2 /HPF (0-6)
[2018-11-17 18:42] LABS: Barbiturates Screen,Urine Negative (Negative); Benzodiazepines Screen,Urine Negative (Negative); Cannabinoid Screen,Urine Negative (Negative); Opiate Screen,Urine Negative (Negative); Phencyclidine Screen,Urine Negative (Negative)
[2018-11-17] MEDS: ESCITALOPRAM 10 MG TABLET PO SCH (21:53)
[2018-11-17] MEDS: MEMANTINE 10 MG TABLET PO SCH (21:53)
[2018-11-17] MEDS: ASPIRIN EC 81 MG TABLET PO SCH (21:53)
[2018-11-17] MEDS: ROSUVASTATIN 20 MG TABLET PO SCH (21:53)
[2018-11-18] MEDS: AMIODARONE INJ 450 MG in DEXTROSE 5% 241 ML IV SCH (02:57)
[2018-11-18] MEDS ORDERED: AMIODARONE INJ 450 MG in DEXTROSE 5% 241 ML IV SCH (03:30)
[2018-11-18 05:24] LABS: Calcium 8.5 MG/DL (8.5-10.1); Osmolality,Calculated 281.4 MOS/KG (273-304); Potassium 3.1 MMOL/L (3.5-5.1); Risk Ratio 3.46; VLDL CHOLESTEROL 20.2 MG/DL
[2018-11-18 05:32] LABS: Basophils % 0.4 % (0.0-0.8); Eosinophils % 0.4 % (0.00-10.9); Hemoglobin 9.1 GM/DL (14.0-18.0); Immature Granulocytes % 1.7 %; Immature Granulocytes Absolute 0.16 #; Lymphocytes # 5.7 10*3/uL (1.4-4.0); Lymphocytes % 59.8 % (21.2-54.2); Mean Corpuscular HGB Conc 32.5 GM/DL (32-36); Mean Corpuscular Hemoglobin 29 PG (27-34); Mean Corpuscular Volume 87.8 FL (87-102); Mean Platelet Volume 9.1 FL (9.6-12.0); Monocytes # 0.3 10*3/uL (0.11-0.8); Monocytes % 3.4 % (1.7-12.7); Neutrophils # 3.3 10*3/uL (1.4-7.4); Neutrophils % 34.3 % (38.7-73.9); Platelet Count 222 T/CUMM (130-400); Red Blood Count 3.19 MC/CUMM (3.8-5.5); Red Cell Distribution Width 14.6 % (9.3-17.3); White Blood Count 9.6 T/CUMM (4-12)
[2018-11-18] MEDS: POTASSIUM CHLORIDE 20 MEQ TABLET PO PRN ×2 (05:38→22:25)
[2018-11-18 06:02] LABS: Atypical Lymphocytes Few; Hypochromasia 1+; Lymphocytes 47 % (20-55); Microcytosis Slight; Ovalocytes Slight; Platelet Estimate Adequate; Segmented Neutrophils 48 % (50-85); Total Cells Counted 100
[2018-11-18 06:03] LABS: Smudge Cells Few
[2018-11-18] MEDS ORDERED: APIXABAN 5 MG TABLET PO SCH ×2 (09:00→21:00)
[2018-11-18] MEDS: MEMANTINE 10 MG TABLET PO SCH ×2 (09:06→22:26)
[2018-11-18] MEDS: PANTOPRAZOLE 40 MG TABLET PO SCH (09:06)
[2018-11-18] MEDS: DONEPEZIL 10 MG TABLET PO SCH (09:06)
[2018-11-18] MEDS: AMIODARONE 200 MG TABLET PO SCH ×2 (09:10→22:26)
[2018-11-18] MEDS ORDERED: MAGNESIUM SULF RIDER 4 GM in PREMIX 1 EACH IV PRN (11:04)
[2018-11-18 12:02] LABS: Troponin I 0.022 NG/ML (0.00-0.045)
[2018-11-18] MEDS ORDERED: MAGNESIUM SULF RIDER 2 GM in PREMIX 1 EACH IV PRN (12:32)
[2018-11-18] MEDS ORDERED: diphenhydrAMINE CAP 25 MG CAPSULE PO ONE (12:32)
[2018-11-18] MEDS ORDERED: DIAZEPAM 5 MG TABLET PO ONE (12:32)
[2018-11-18] MEDS: MAGNESIUM SULF RIDER 2 GM in PREMIX 1 EACH IV PRN (12:40)
[2018-11-18 15:07] LABS: Troponin I 0.026 NG/ML (0.00-0.045)
[2018-11-18] MEDS: ASCORBIC ACID 500 MG TABLET PO SCH ×2 (17:00→22:26)
[2018-11-18] MEDS: cefTRIAXone 1,000 MG in SYRINGE 1 EACH IV SCH (17:00)
[2018-11-18] MEDS: ROSUVASTATIN 20 MG TABLET PO SCH (22:25)
[2018-11-18] MEDS: ASPIRIN EC 81 MG TABLET PO SCH (22:26)
[2018-11-18] MEDS: ESCITALOPRAM 10 MG TABLET PO SCH (22:26)
[2018-11-18] MEDS: ENOXAPARIN 60 MG/0.6 ML SYRINGE SUBCUT SCH (22:27)
[2018-11-18] MEDS: POTASSIUM CHLORIDE RIDER 10 MEQ in PREMIX 1 EACH IV PRN (23:30)
[2018-11-19] MEDS: POTASSIUM CHLORIDE RIDER 10 MEQ in PREMIX 1 EACH IV PRN (01:00)
[2018-11-19 05:13] LABS: Basophils # 0.1 10*3/uL (0.0-0.2); Basophils % 0.5 % (0.0-0.8); Eosinophils # 0.1 10*3/uL (0.0-0.87); Hematocrit 30.4 VOL% (42.0-52.0); Hemoglobin 9.7 GM/DL (14.0-18.0); Immature Granulocytes % 2.8 %; Immature Granulocytes Absolute 0.29 #; Lymphocytes # 5.9 10*3/uL (1.4-4.0); Mean Corpuscular HGB Conc 31.9 GM/DL (32-36); Mean Corpuscular Hemoglobin 28 PG (27-34); Mean Corpuscular Volume 88.6 FL (87-102); Mean Platelet Volume 8.9 FL (9.6-12.0); Monocytes # 0.4 10*3/uL (0.11-0.8); Neutrophils # 3.5 10*3/uL (1.4-7.4); Neutrophils % 33.7 % (38.7-73.9); Platelet Count 221 T/CUMM (130-400); Red Blood Count 3.43 MC/CUMM (3.8-5.5); Red Cell Distribution Width 14.8 % (9.3-17.3); White Blood Count 10.3 T/CUMM (4-12)
[2018-11-19 05:35] LABS: Calcium 8.1 MG/DL (8.5-10.1); Osmolality,Calculated 282.1 MOS/KG (273-304); Potassium 3.5 MMOL/L (3.5-5.1)
[2018-11-19 05:44] LABS: Band Neutrophils 4 % (0-10); Calcium 8.5 MG/DL (8.5-10.1); Lymphocytes 49 % (20-55); Nucleated Red Blood Cells 0 (0-5); Osmolality,Calculated 280.3 MOS/KG (273-304); Platelet Estimate Normal; Potassium 3.5 MMOL/L (3.5-5.1); Segmented Neutrophils 46 % (50-85); Total Cells Counted 100
[2018-11-19 05:45] LABS: Anisocytosis 1+
[2018-11-19] MEDS ORDERED: diphenhydrAMINE CAP 50 MG CAPSULE ONE (08:57)
[2018-11-19] MEDS ORDERED: DIAZEPAM 5 MG TABLET ONE (08:58)
[2018-11-19] MEDS: SODIUM CHLORIDE 0.45% 1,000 ML IV SCH ×3 (09:29→19:05)
[2018-11-19] MEDS: ASCORBIC ACID 500 MG TABLET PO SCH ×2 (11:22→20:47)
[2018-11-19] MEDS: DONEPEZIL 10 MG TABLET PO SCH (11:23)
[2018-11-19] MEDS: PANTOPRAZOLE 40 MG TABLET PO SCH (11:23)
[2018-11-19] MEDS: ENOXAPARIN 60 MG/0.6 ML SYRINGE SUBCUT SCH ×2 (11:23→20:48)
[2018-11-19] MEDS: AMIODARONE 200 MG TABLET PO SCH ×2 (11:23→20:47)
[2018-11-19] MEDS: MEMANTINE 10 MG TABLET PO SCH ×2 (11:23→20:47)
[2018-11-19] MEDS ORDERED: NITROGLYCERIN DRIP 50 MG/250 ML BOTTLE IV ONE (12:51)
[2018-11-19] MEDS ORDERED: LIDOCAINE 1% 20 ML VIAL ONE (12:51)
[2018-11-19] MEDS ORDERED: VERAPAMIL 5 MG/2 ML VIAL ONE (12:52)
[2018-11-19] MEDS ORDERED: MIDAZOLAM 2 MG/2 ML VIAL ONE (12:56)
[2018-11-19] MEDS ORDERED: ADENOSINE 90 MG/30 ML VIAL IV ONE (13:30)
[2018-11-19] MEDS ORDERED: ENOXAPARIN 30 MG/0.3 ML SYRINGE ONE (13:52)
[2018-11-19] MEDS ORDERED: ASPIRIN 325 MG TABLET ONE (13:53)
[2018-11-19] MEDS ORDERED: TICAGRELOR 90 MG TABLET ONE (13:53)
[2018-11-19] MEDS ORDERED: NITROGLYCERIN SL 0.4 MG TABLET SL PRN (14:06)
[2018-11-19] MEDS: cefTRIAXone 1,000 MG in SYRINGE 1 EACH IV SCH (16:34)
[2018-11-19 17:31] LABS: Troponin I 0.028 NG/ML (0.00-0.045)
[2018-11-19] MEDS: TICAGRELOR 90 MG TABLET PO SCH (20:47)
[2018-11-19] MEDS: METOPROLOL SUCCINATE XL 25 MG TABLET PO SCH (20:47)
[2018-11-19] MEDS: ESCITALOPRAM 10 MG TABLET PO SCH (20:48)
[2018-11-19] MEDS: ROSUVASTATIN 20 MG TABLET PO SCH (20:48)
[2018-11-19] MEDS: ASPIRIN EC 81 MG TABLET PO SCH (20:48)
[2018-11-20] MEDS: SODIUM CHLORIDE 0.45% 1,000 ML IV SCH ×4 (00:36→14:50)
[2018-11-20 05:01] LABS: Basophils # 0.1 10*3/uL (0.0-0.2); Basophils % 0.6 % (0.0-0.8); Eosinophils # 0.1 10*3/uL (0.0-0.87); Eosinophils % 1.3 % (0.00-10.9); Hematocrit 30.2 VOL% (42.0-52.0); Hemoglobin 9.6 GM/DL (14.0-18.0); Immature Granulocytes % 1.9 %; Lymphocytes # 4.6 10*3/uL (1.4-4.0); Lymphocytes % 45.1 % (21.2-54.2); Mean Corpuscular HGB Conc 31.8 GM/DL (32-36); Mean Corpuscular Hemoglobin 28 PG (27-34); Mean Corpuscular Volume 87.8 FL (87-102); Monocytes # 0.5 10*3/uL (0.11-0.8); Monocytes % 4.4 % (1.7-12.7); Neutrophils # 4.8 10*3/uL (1.4-7.4); Neutrophils % 46.7 % (38.7-73.9); Platelet Count 237 T/CUMM (130-400); Red Blood Count 3.44 MC/CUMM (3.8-5.5); Red Cell Distribution Width 14.8 % (9.3-17.3); White Blood Count 10.3 T/CUMM (4-12)
[2018-11-20 05:19] LABS: Calcium 7.9 MG/DL (8.5-10.1); Osmolality,Calculated 276.5 MOS/KG (273-304); Potassium 3.4 MMOL/L (3.5-5.1)
[2018-11-20 05:30] LABS: Blood Urea Nitrogen 14 MG/DL (7-18); Calcium 8.1 MG/DL (8.5-10.1); Glucose 76 MG/DL (74-106); Osmolality,Calculated 278.4 MOS/KG (273-304); Potassium 3.4 MMOL/L (3.5-5.1); Sodium 140 MMOL/L (136-145)
[2018-11-20] MEDS: POTASSIUM CHLORIDE 20 MEQ TABLET PO PRN ×3 (06:05→10:33)
[2018-11-20] MEDS: TICAGRELOR 90 MG TABLET PO SCH ×2 (08:35→21:49)
[2018-11-20] MEDS: PANTOPRAZOLE 40 MG TABLET PO SCH (08:35)
[2018-11-20] MEDS: MEMANTINE 10 MG TABLET PO SCH ×2 (08:35→21:49)
[2018-11-20] MEDS: METOPROLOL SUCCINATE XL 25 MG TABLET PO SCH ×2 (08:36→21:49)
[2018-11-20] MEDS: ASCORBIC ACID 500 MG TABLET PO SCH ×2 (08:36→21:49)
[2018-11-20] MEDS: AMIODARONE 200 MG TABLET PO SCH ×2 (08:36→21:49)
[2018-11-20] MEDS: LISINOPRIL 5 MG TABLET PO SCH (08:36)
[2018-11-20] MEDS: DONEPEZIL 10 MG TABLET PO SCH (08:36)
[2018-11-20] MEDS: ENOXAPARIN 60 MG/0.6 ML SYRINGE SUBCUT SCH (08:37)
[2018-11-20] MEDS: MAGNESIUM SULF RIDER 2 GM in PREMIX 1 EACH IV PRN (08:39)
[2018-11-20] MEDS: SODIUM CHLOR 0.45% KCL 20 MEQ 20 MEQ/1,000 ML BAG IV SCH (15:55)
[2018-11-20] MEDS: cefTRIAXone 1,000 MG in SYRINGE 1 EACH IV SCH (15:55)
[2018-11-20] MEDS: VANCOMYCIN 50 MG/ML 60 ML/BOTTLE PO SCH (17:08)
[2018-11-20] MEDS: CHOLESTYRAMINE 4 GM PACK PO SCH (21:48)
[2018-11-20] MEDS: ESCITALOPRAM 10 MG TABLET PO SCH (21:49)
[2018-11-20] MEDS: ROSUVASTATIN 20 MG TABLET PO SCH (21:49)
[2018-11-20] MEDS: ASPIRIN EC 81 MG TABLET PO SCH (21:49)
[2018-11-21] MEDS: VANCOMYCIN 50 MG/ML 60 ML/BOTTLE PO SCH ×2 (00:34→09:05)
[2018-11-21 04:11] LABS: Basophils % 0.3 % (0.0-0.8); Eosinophils # 0.1 10*3/uL (0.0-0.87); Eosinophils % 0.9 % (0.00-10.9); Hematocrit 29.5 VOL% (42.0-52.0); Hemoglobin 9.5 GM/DL (14.0-18.0); Immature Granulocytes % 2.7 %; Immature Granulocytes Absolute 0.25 #; Lymphocytes # 4.6 10*3/uL (1.4-4.0); Lymphocytes % 49.3 % (21.2-54.2); Mean Corpuscular HGB Conc 32.2 GM/DL (32-36); Mean Corpuscular Hemoglobin 28 PG (27-34); Mean Platelet Volume 8.8 FL (9.6-12.0); Monocytes # 0.5 10*3/uL (0.11-0.8); Monocytes % 5.4 % (1.7-12.7); Neutrophils # 3.8 10*3/uL (1.4-7.4); Neutrophils % 41.4 % (38.7-73.9); Platelet Count 232 T/CUMM (130-400); Red Blood Count 3.43 MC/CUMM (3.8-5.5); Red Cell Distribution Width 14.6 % (9.3-17.3); White Blood Count 9.3 T/CUMM (4-12)
[2018-11-21 04:31] LABS: Calcium 8.4 MG/DL (8.5-10.1); Osmolality,Calculated 278.4 MOS/KG (273-304); Potassium 3.7 MMOL/L (3.5-5.1)
[2018-11-21] MEDS: SODIUM CHLOR 0.45% KCL 20 MEQ 20 MEQ/1,000 ML BAG IV SCH (05:40)
[2018-11-21 07:37] VITALS: BP 137/72
[2018-11-21] MEDS: CHOLESTYRAMINE 4 GM PACK PO SCH (09:05)
[2018-11-21] MEDS: METOPROLOL SUCCINATE XL 25 MG TABLET PO SCH (09:06)
[2018-11-21] MEDS: TICAGRELOR 90 MG TABLET PO SCH (09:06)
[2018-11-21] MEDS: ASCORBIC ACID 500 MG TABLET PO SCH (09:06)
[2018-11-21] MEDS: AMIODARONE 200 MG TABLET PO SCH (09:06)
[2018-11-21] MEDS: DONEPEZIL 10 MG TABLET PO SCH (09:06)
[2018-11-21] MEDS: PANTOPRAZOLE 40 MG TABLET PO SCH (09:06)
[2018-11-21] MEDS: MEMANTINE 10 MG TABLET PO SCH (09:06)
[2018-11-21] MEDS: LISINOPRIL 5 MG TABLET PO SCH (09:07)
[2018-11-21] MEDS: MAGNESIUM SULF RIDER 2 GM in PREMIX 1 EACH IV PRN (09:18)
== END 2018-11-21 11:00 | disposition home health service (06) | DRG 250 ==
LOC: EDBD → EDUNIT# → N.ED 15:00 → N.TELEN 16:45 → N.EDINP 17:20 → N.TELEN 18:39
PROVIDERS: ADMIT Internal Medicine; ATTEND Internal Medicine

== ENCOUNTER 2018-12-20 15:46 | Inpatient (IN) ==
[2018-12-20] MEDS ORDERED: SODIUM CHLORIDE 0.9% 1,000 ML IV STA (16:19)
[2018-12-20 16:42] LABS: Basophils # 0.1 10*3/uL (0.0-0.2); Basophils % 0.5 % (0.0-0.8); Eosinophils % 0.1 % (0.00-10.9); Hematocrit 36.4 VOL% (42.0-52.0); Hemoglobin 11.6 GM/DL (14.0-18.0); Immature Granulocytes % 3.3 %; Lymphocytes # 6.6 10*3/uL (1.4-4.0); Lymphocytes % 43.1 % (21.2-54.2); Mean Corpuscular HGB Conc 31.9 GM/DL (32-36); Mean Corpuscular Hemoglobin 28 PG (27-34); Mean Platelet Volume 8.7 FL (9.6-12.0); Monocytes # 0.8 10*3/uL (0.11-0.8); Monocytes % 5.1 % (1.7-12.7); Neutrophils # 7.4 10*3/uL (1.4-7.4); Neutrophils % 47.9 % (38.7-73.9); Platelet Count 287 T/CUMM (130-400); Red Blood Count 4.09 MC/CUMM (3.8-5.5); Red Cell Distribution Width 15.2 % (9.3-17.3); White Blood Count 15.4 T/CUMM (4-12)
[2018-12-20 17:01] LABS: Albumin 2.6 G/DL (3.4-5.0); Bilirubin,Total 0.4 MG/DL (0.2-1.0); Calcium 8.7 MG/DL (8.5-10.1); Osmolality,Calculated 277.7 MOS/KG (273-304); Potassium 3.5 MMOL/L (3.5-5.1); Total Protein 6.7 G/DL (6.4-8.3)
[2018-12-20] MEDS ORDERED: LEVOFLOXACIN INJ 750 MG in PREMIX 1 EACH IV STA (17:24)
[2018-12-20 17:35] LABS: Apearance,Urine Slightly Hazy (Clear); Bilirubin,Urine Negative (Negative); Blood, Urine Negative (Negative); Glucose,Urine (UA) Negative (Negative); Ketones,Urine Negative (Negative); Nitrite,Urine Negative (Negative); Protein,Urine Negative; RBC,Urine 1 /HPF (0-4); Urine Color Yellow (Yellow); Urine Specific Gravity 1.018 (1.001-1.035); Urine Urobilinogen < 2.0 EU/DL (0.2-1.0); WBC,Urine 1 /HPF (0-6)
[2018-12-20] MEDS ORDERED: ONDANSETRON 4 MG/2 ML VIAL IV PRN (18:12)
[2018-12-20] MEDS ORDERED: DOCUSATE SODIUM 100 MG CAPSULE PO PRN (18:12)
[2018-12-20] MEDS ORDERED: guaiFENesin/DM ER 600-30 MG TABLET PO PRN (18:12)
[2018-12-20] MEDS ORDERED: ZALEPLON 5 MG CAPSULE PO PRN (18:12)
[2018-12-20] MEDS ORDERED: ACETAMINOPHEN 325 MG TABLET PO PRN (18:12)
[2018-12-20] MEDS ORDERED: NITROGLYCERIN SL 0.4 MG TABLET SL PRN (18:39)
[2018-12-20] MEDS: PIPERACILLIN/TAZOBACTAM 3,375 MG in SODIUM CHLORIDE 0.9% 100 ML IV SCH (19:51)
[2018-12-20] MEDS: ENOXAPARIN 40 MG/0.4 ML SYRINGE SUBCUT SCH (19:51)
[2018-12-20] MEDS: SODIUM CHLORIDE 0.9% 1,000 ML IV SCH (20:04)
[2018-12-20] MEDS: ROSUVASTATIN 20 MG TABLET PO SCH (20:11)
[2018-12-20] MEDS: METOPROLOL SUCCINATE XL 25 MG TABLET PO SCH (20:11)
[2018-12-20] MEDS: ESCITALOPRAM 10 MG TABLET PO SCH (20:11)
[2018-12-20] MEDS: MEMANTINE 10 MG TABLET PO SCH (20:11)
[2018-12-20] MEDS: ASPIRIN EC 81 MG TABLET PO SCH (20:11)
[2018-12-20] MEDS: AMIODARONE 200 MG TABLET PO SCH (20:11)
[2018-12-20] MEDS: CHOLESTYRAMINE 4 GM PACK PO SCH (20:11)
[2018-12-20] MEDS: ASCORBIC ACID 500 MG TABLET PO SCH (22:05)
[2018-12-20] MEDS: KETOCONAZOLE 2% CREAM 30 GM TUBE TOP SCH (22:05)
[2018-12-21] MEDS: SODIUM CHLORIDE 0.9% 1,000 ML IV SCH ×3 (04:05→20:20)
[2018-12-21] MEDS: PIPERACILLIN/TAZOBACTAM 3,375 MG in SODIUM CHLORIDE 0.9% 100 ML IV SCH (04:14)
[2018-12-21 06:31] LABS: Basophils % 0.3 % (0.0-0.8); Eosinophils % 0.1 % (0.00-10.9); Hemoglobin 9.4 GM/DL (14.0-18.0); Immature Granulocytes % 2.3 %; Immature Granulocytes Absolute 0.23 #; Lymphocytes # 3.9 10*3/uL (1.4-4.0); Lymphocytes % 39.9 % (21.2-54.2); Mean Corpuscular HGB Conc 31.3 GM/DL (32-36); Mean Corpuscular Hemoglobin 28 PG (27-34); Mean Corpuscular Volume 90.1 FL (87-102); Monocytes # 0.6 10*3/uL (0.11-0.8); Monocytes % 6.4 % (1.7-12.7); Platelet Count 215 T/CUMM (130-400); Red Blood Count 3.33 MC/CUMM (3.8-5.5); Red Cell Distribution Width 15.3 % (9.3-17.3); White Blood Count 9.8 T/CUMM (4-12)
[2018-12-21 06:54] LABS: Calcium 8.3 MG/DL (8.5-10.1); Osmolality,Calculated 285.1 MOS/KG (273-304); Potassium 3.8 MMOL/L (3.5-5.1)
[2018-12-21] MEDS ORDERED: VANCOMYCIN 50 MG/ML 60 ML/BOTTLE PO SCH (09:00)
[2018-12-21] MEDS: MEROPENEM 500 MG in SODIUM CHLORIDE 0.9% 100 ML IV SCH ×2 (09:45→17:03)
[2018-12-21] MEDS: FLUTICASONE 50 MCG NASAL SPRAY 16 GM BOTTLE BOTH NARES SCH (09:48)
[2018-12-21] MEDS: MULTIVITAMIN (CENTRUM) TABLET PO SCH (09:48)
[2018-12-21] MEDS: DONEPEZIL 10 MG TABLET PO SCH (09:48)
[2018-12-21] MEDS: AMIODARONE 200 MG TABLET PO SCH ×2 (09:48→20:30)
[2018-12-21] MEDS: POTASSIUM CHLORIDE 10 MEQ TABLET PO SCH (09:49)
[2018-12-21] MEDS: MAGNESIUM OXIDE 400 MG TABLET PO SCH (09:49)
[2018-12-21] MEDS: CHOLESTYRAMINE 4 GM PACK PO SCH ×2 (09:49→10:11)
[2018-12-21] MEDS: PANTOPRAZOLE 40 MG TABLET PO SCH (09:49)
[2018-12-21] MEDS: MEMANTINE 10 MG TABLET PO SCH ×2 (09:49→20:30)
[2018-12-21] MEDS: KETOCONAZOLE 2% CREAM 30 GM TUBE TOP SCH ×2 (09:49→20:40)
[2018-12-21] MEDS: CLOPIDOGREL 75 MG TABLET PO SCH (09:49)
[2018-12-21] MEDS: METOPROLOL SUCCINATE XL 25 MG TABLET PO SCH ×2 (09:50→20:30)
[2018-12-21] MEDS: ASCORBIC ACID 500 MG TABLET PO SCH ×2 (09:50→20:30)
[2018-12-21] MEDS: FENOFIBRATE 145 MG TABLET PO SCH (09:50)
[2018-12-21] MEDS: CHOLECALCIFEROL 1,000 UNIT TABLET PO SCH (09:50)
[2018-12-21] MEDS ORDERED: LEVOFLOXACIN INJ 750 MG in PREMIX 1 EACH IV SCH (18:30)
[2018-12-21] MEDS: ROSUVASTATIN 20 MG TABLET PO SCH (20:29)
[2018-12-21] MEDS: ENOXAPARIN 40 MG/0.4 ML SYRINGE SUBCUT SCH (20:29)
[2018-12-21] MEDS: ESCITALOPRAM 10 MG TABLET PO SCH (20:30)
[2018-12-21] MEDS: ASPIRIN EC 81 MG TABLET PO SCH (20:30)
[2018-12-21] MEDS: VANCOMYCIN 50 MG/ML 60 ML/BOTTLE PO SCH (20:33)
[2018-12-22] MEDS: MEROPENEM 500 MG in SODIUM CHLORIDE 0.9% 100 ML IV SCH ×3 (01:30→16:46)
[2018-12-22] MEDS: SODIUM CHLORIDE 0.9% 1,000 ML IV SCH ×3 (03:36→21:40)
[2018-12-22 05:37] LABS: Basophils % 0.2 % (0.0-0.8); Eosinophils % 0.1 % (0.00-10.9); Hematocrit 30.7 VOL% (42.0-52.0); Hemoglobin 9.5 GM/DL (14.0-18.0); Immature Granulocytes % 3.3 %; Immature Granulocytes Absolute 0.28 #; Lymphocytes # 3.1 10*3/uL (1.4-4.0); Lymphocytes % 36.9 % (21.2-54.2); Mean Corpuscular HGB Conc 30.9 GM/DL (32-36); Mean Corpuscular Hemoglobin 28 PG (27-34); Mean Corpuscular Volume 89.8 FL (87-102); Mean Platelet Volume 8.9 FL (9.6-12.0); Monocytes # 0.5 10*3/uL (0.11-0.8); Monocytes % 5.3 % (1.7-12.7); Neutrophils # 4.6 10*3/uL (1.4-7.4); Neutrophils % 54.2 % (38.7-73.9); Platelet Count 206 T/CUMM (130-400); Red Blood Count 3.42 MC/CUMM (3.8-5.5); Red Cell Distribution Width 15.2 % (9.3-17.3); White Blood Count 8.5 T/CUMM (4-12)
[2018-12-22 05:51] LABS: Calcium 7.8 MG/DL (8.5-10.1); Osmolality,Calculated 280.3 MOS/KG (273-304); Potassium 3.5 MMOL/L (3.5-5.1)
[2018-12-22] MEDS: CLOPIDOGREL 75 MG TABLET PO SCH (08:32)
[2018-12-22] MEDS: FENOFIBRATE 145 MG TABLET PO SCH (08:32)
[2018-12-22] MEDS: MEMANTINE 10 MG TABLET PO SCH ×2 (08:32→22:02)
[2018-12-22] MEDS: METOPROLOL SUCCINATE XL 25 MG TABLET PO SCH ×2 (08:32→22:01)
[2018-12-22] MEDS: DONEPEZIL 10 MG TABLET PO SCH (08:32)
[2018-12-22] MEDS: AMIODARONE 200 MG TABLET PO SCH ×2 (08:32→22:02)
[2018-12-22] MEDS: POTASSIUM CHLORIDE 10 MEQ TABLET PO SCH (08:33)
[2018-12-22] MEDS: FLUTICASONE 50 MCG NASAL SPRAY 16 GM BOTTLE BOTH NARES SCH (08:33)
[2018-12-22] MEDS: KETOCONAZOLE 2% CREAM 30 GM TUBE TOP SCH ×2 (08:33→22:09)
[2018-12-22] MEDS: ASCORBIC ACID 500 MG TABLET PO SCH ×2 (08:41→22:02)
[2018-12-22] MEDS: MAGNESIUM OXIDE 400 MG TABLET PO SCH (08:41)
[2018-12-22] MEDS: PANTOPRAZOLE 40 MG TABLET PO SCH (08:41)
[2018-12-22] MEDS: CHOLECALCIFEROL 1,000 UNIT TABLET PO SCH (08:41)
[2018-12-22] MEDS: VANCOMYCIN 50 MG/ML 60 ML/BOTTLE PO SCH ×2 (08:41→22:12)
[2018-12-22] MEDS: MULTIVITAMIN (CENTRUM) TABLET PO SCH (08:41)
[2018-12-22] MEDS: POTASSIUM CHLORIDE 20 MEQ TABLET PO SCH ×2 (10:02→22:02)
[2018-12-22] MEDS: LEVOFLOXACIN 750 MG TABLET PO SCH (10:02)
[2018-12-22] MEDS: ROSUVASTATIN 20 MG TABLET PO SCH (22:01)
[2018-12-22] MEDS: ASPIRIN EC 81 MG TABLET PO SCH (22:02)
[2018-12-22] MEDS: ESCITALOPRAM 10 MG TABLET PO SCH (22:02)
[2018-12-22] MEDS: ENOXAPARIN 40 MG/0.4 ML SYRINGE SUBCUT SCH (22:02)
[2018-12-23] MEDS: MEROPENEM 500 MG in SODIUM CHLORIDE 0.9% 100 ML IV SCH ×2 (01:01→08:35)
[2018-12-23 05:12] LABS: Basophils % 0.3 % (0.0-0.8); Eosinophils % 0.1 % (0.00-10.9); Hematocrit 27.6 VOL% (42.0-52.0); Hemoglobin 8.6 GM/DL (14.0-18.0); Immature Granulocytes % 2.6 %; Lymphocytes # 3.7 10*3/uL (1.4-4.0); Lymphocytes % 46.7 % (21.2-54.2); Mean Corpuscular HGB Conc 31.2 GM/DL (32-36); Mean Corpuscular Hemoglobin 28 PG (27-34); Mean Platelet Volume 9.3 FL (9.6-12.0); Monocytes # 0.4 10*3/uL (0.11-0.8); Monocytes % 5.4 % (1.7-12.7); Neutrophils # 3.5 10*3/uL (1.4-7.4); Neutrophils % 44.9 % (38.7-73.9); Platelet Count 209 T/CUMM (130-400); Red Cell Distribution Width 14.9 % (9.3-17.3); White Blood Count 7.8 T/CUMM (4-12)
[2018-12-23 05:20] LABS: Calcium 7.7 MG/DL (8.5-10.1); Osmolality,Calculated 276.4 MOS/KG (273-304); Potassium 3.6 MMOL/L (3.5-5.1)
[2018-12-23] MEDS: SODIUM CHLORIDE 0.9% 1,000 ML IV SCH ×2 (06:13→14:13)
[2018-12-23] MEDS: LEVOFLOXACIN 750 MG TABLET PO SCH (08:38)
[2018-12-23] MEDS: AMIODARONE 200 MG TABLET PO SCH ×2 (08:38→22:04)
[2018-12-23] MEDS: ASCORBIC ACID 500 MG TABLET PO SCH ×2 (08:38→22:04)
[2018-12-23] MEDS: METOPROLOL SUCCINATE XL 25 MG TABLET PO SCH ×2 (08:41→22:05)
[2018-12-23] MEDS: CHOLECALCIFEROL 1,000 UNIT TABLET PO SCH (08:41)
[2018-12-23] MEDS: FENOFIBRATE 145 MG TABLET PO SCH (08:41)
[2018-12-23] MEDS: DONEPEZIL 10 MG TABLET PO SCH (08:41)
[2018-12-23] MEDS: PANTOPRAZOLE 40 MG TABLET PO SCH (08:41)
[2018-12-23] MEDS: POTASSIUM CHLORIDE 20 MEQ TABLET PO SCH ×2 (08:43→22:05)
[2018-12-23] MEDS: MEMANTINE 10 MG TABLET PO SCH ×2 (08:43→22:04)
[2018-12-23] MEDS: CLOPIDOGREL 75 MG TABLET PO SCH (08:43)
[2018-12-23] MEDS: MULTIVITAMIN (CENTRUM) TABLET PO SCH (08:43)
[2018-12-23] MEDS: MAGNESIUM OXIDE 400 MG TABLET PO SCH (08:43)
[2018-12-23] MEDS: VANCOMYCIN 50 MG/ML 60 ML/BOTTLE PO SCH ×2 (08:44→22:05)
[2018-12-23] MEDS: KETOCONAZOLE 2% CREAM 30 GM TUBE TOP SCH ×2 (08:46→22:05)
[2018-12-23] MEDS: FLUTICASONE 50 MCG NASAL SPRAY 16 GM BOTTLE BOTH NARES SCH (08:53)
[2018-12-23] MEDS: PIPERACILLIN/TAZOBACTAM 3,375 MG in SODIUM CHLORIDE 0.9% 100 ML IV SCH (16:13)
[2018-12-23] MEDS: ESCITALOPRAM 10 MG TABLET PO SCH (22:04)
[2018-12-23] MEDS: ASPIRIN EC 81 MG TABLET PO SCH (22:04)
[2018-12-23] MEDS: ROSUVASTATIN 20 MG TABLET PO SCH (22:05)
[2018-12-23] MEDS: ENOXAPARIN 40 MG/0.4 ML SYRINGE SUBCUT SCH (22:05)
[2018-12-24] MEDS: PIPERACILLIN/TAZOBACTAM 3,375 MG in SODIUM CHLORIDE 0.9% 100 ML IV SCH ×3 (02:33→16:13)
[2018-12-24] MEDS: SODIUM CHLORIDE 0.9% 1,000 ML IV SCH ×3 (02:33→23:35)
[2018-12-24] MEDS ORDERED: PROMETHAZINE 25 MG/1 ML VIAL IM ONE (07:00)
[2018-12-24] MEDS ORDERED: MEPERIDINE 50 MG/1 ML VIAL IV ONE (07:00)
[2018-12-24] MEDS ORDERED: LIDOCAINE 2% 20 ML VIAL RESP TX ONE (07:30)
[2018-12-24] MEDS ORDERED: LIDOCAINE 2% VISCOUS 100 ML BOTTLE SWISH/SPIT ONE (07:30)
[2018-12-24] MEDS ORDERED: LIDOCAINE 1% 20 ML VIAL MISC INJ ONE (07:30)
[2018-12-24] MEDS ORDERED: MIDAZOLAM 2 MG/2 ML VIAL IV ONE (07:30)
[2018-12-24] MEDS: METOPROLOL SUCCINATE XL 25 MG TABLET PO SCH (09:00)
[2018-12-24] MEDS: POTASSIUM CHLORIDE 20 MEQ TABLET PO SCH (09:00)
[2018-12-24] MEDS: LEVOFLOXACIN 750 MG TABLET PO SCH (09:00)
[2018-12-24] MEDS: VANCOMYCIN 50 MG/ML 60 ML/BOTTLE PO SCH (09:00)
[2018-12-24] MEDS: MULTIVITAMIN (CENTRUM) TABLET PO SCH (09:00)
[2018-12-24] MEDS: ASCORBIC ACID 500 MG TABLET PO SCH (09:00)
[2018-12-24] MEDS: MEMANTINE 10 MG TABLET PO SCH (09:00)
[2018-12-24] MEDS: MAGNESIUM OXIDE 400 MG TABLET PO SCH (09:00)
[2018-12-24] MEDS: AMIODARONE 200 MG TABLET PO SCH (09:00)
[2018-12-24] MEDS: FENOFIBRATE 145 MG TABLET PO SCH (09:00)
[2018-12-24] MEDS: PANTOPRAZOLE 40 MG TABLET PO SCH (09:00)
[2018-12-24] MEDS: CLOPIDOGREL 75 MG TABLET PO SCH (09:00)
[2018-12-24] MEDS: CHOLECALCIFEROL 1,000 UNIT TABLET PO SCH (09:00)
[2018-12-24] MEDS: DONEPEZIL 10 MG TABLET PO SCH (09:00)
[2018-12-24] MEDS: FLUTICASONE 50 MCG NASAL SPRAY 16 GM BOTTLE BOTH NARES SCH (11:00)
[2018-12-24] MEDS: KETOCONAZOLE 2% CREAM 30 GM TUBE TOP SCH (11:00)
[2018-12-24] MEDS ORDERED: MIDAZOLAM 2 MG/2 ML VIAL ONE (11:19)
[2018-12-25] MEDS: AMIODARONE 200 MG TABLET PO SCH ×3 (00:57→21:39)
[2018-12-25] MEDS: ASPIRIN EC 81 MG TABLET PO SCH ×2 (00:57→21:39)
[2018-12-25] MEDS: ROSUVASTATIN 20 MG TABLET PO SCH ×2 (00:58→21:39)
[2018-12-25] MEDS: POTASSIUM CHLORIDE 20 MEQ TABLET PO SCH ×3 (00:58→21:39)
[2018-12-25] MEDS: ENOXAPARIN 40 MG/0.4 ML SYRINGE SUBCUT SCH ×2 (00:58→21:39)
[2018-12-25] MEDS: ESCITALOPRAM 10 MG TABLET PO SCH ×2 (00:58→21:39)
[2018-12-25] MEDS: KETOCONAZOLE 2% CREAM 30 GM TUBE TOP SCH ×3 (00:58→21:50)
[2018-12-25] MEDS: MEMANTINE 10 MG TABLET PO SCH ×3 (00:58→21:39)
[2018-12-25] MEDS: METOPROLOL SUCCINATE XL 25 MG TABLET PO SCH ×3 (01:00→21:39)
[2018-12-25] MEDS: VANCOMYCIN 50 MG/ML 60 ML/BOTTLE PO SCH ×3 (01:00→21:50)
[2018-12-25] MEDS: ASCORBIC ACID 500 MG TABLET PO SCH ×3 (01:00→21:38)
[2018-12-25] MEDS: PIPERACILLIN/TAZOBACTAM 3,375 MG in SODIUM CHLORIDE 0.9% 100 ML IV SCH ×3 (02:17→16:40)
[2018-12-25] MEDS: MULTIVITAMIN (CENTRUM) TABLET PO SCH (09:14)
[2018-12-25] MEDS: CLOPIDOGREL 75 MG TABLET PO SCH (09:14)
[2018-12-25] MEDS: PANTOPRAZOLE 40 MG TABLET PO SCH (09:14)
[2018-12-25] MEDS: MAGNESIUM OXIDE 400 MG TABLET PO SCH (09:17)
[2018-12-25] MEDS: DONEPEZIL 10 MG TABLET PO SCH (09:17)
[2018-12-25] MEDS: CHOLECALCIFEROL 1,000 UNIT TABLET PO SCH (09:19)
[2018-12-25] MEDS: FLUTICASONE 50 MCG NASAL SPRAY 16 GM BOTTLE BOTH NARES SCH (09:19)
[2018-12-25] MEDS: LEVOFLOXACIN 750 MG TABLET PO SCH (09:19)
[2018-12-25] MEDS: FENOFIBRATE 145 MG TABLET PO SCH (09:19)
[2018-12-25] MEDS: SODIUM CHLORIDE 0.9% 1,000 ML IV SCH (16:42)
[2018-12-26] MEDS: PIPERACILLIN/TAZOBACTAM 3,375 MG in SODIUM CHLORIDE 0.9% 100 ML IV SCH ×3 (01:01→17:01)
[2018-12-26] MEDS: SODIUM CHLORIDE 0.9% 1,000 ML IV SCH ×3 (02:28→17:02)
[2018-12-26] MEDS: PANTOPRAZOLE 40 MG TABLET PO SCH (10:20)
[2018-12-26] MEDS: MULTIVITAMIN (CENTRUM) TABLET PO SCH (10:20)
[2018-12-26] MEDS: LEVOFLOXACIN 750 MG TABLET PO SCH (10:20)
[2018-12-26] MEDS: POTASSIUM CHLORIDE 20 MEQ TABLET PO SCH ×2 (10:20→21:23)
[2018-12-26] MEDS: FENOFIBRATE 145 MG TABLET PO SCH (10:20)
[2018-12-26] MEDS: MAGNESIUM OXIDE 400 MG TABLET PO SCH (10:20)
[2018-12-26] MEDS: METOPROLOL SUCCINATE XL 25 MG TABLET PO SCH ×2 (10:20→21:23)
[2018-12-26] MEDS: DONEPEZIL 10 MG TABLET PO SCH (10:20)
[2018-12-26] MEDS: CLOPIDOGREL 75 MG TABLET PO SCH (10:20)
[2018-12-26] MEDS: FLUTICASONE 50 MCG NASAL SPRAY 16 GM BOTTLE BOTH NARES SCH (10:21)
[2018-12-26] MEDS: KETOCONAZOLE 2% CREAM 30 GM TUBE TOP SCH ×2 (10:21→21:24)
[2018-12-26] MEDS: MEMANTINE 10 MG TABLET PO SCH ×2 (10:21→21:24)
[2018-12-26] MEDS: CHOLECALCIFEROL 1,000 UNIT TABLET PO SCH (10:21)
[2018-12-26] MEDS: ASCORBIC ACID 500 MG TABLET PO SCH ×2 (10:21→21:24)
[2018-12-26] MEDS: AMIODARONE 200 MG TABLET PO SCH ×2 (10:21→21:24)
[2018-12-26] MEDS: VANCOMYCIN 50 MG/ML 60 ML/BOTTLE PO SCH ×2 (10:22→21:24)
[2018-12-26] MEDS: ASPIRIN EC 81 MG TABLET PO SCH (21:23)
[2018-12-26] MEDS: ROSUVASTATIN 20 MG TABLET PO SCH (21:23)
[2018-12-26] MEDS: ESCITALOPRAM 10 MG TABLET PO SCH (21:23)
[2018-12-26] MEDS: ENOXAPARIN 40 MG/0.4 ML SYRINGE SUBCUT SCH (21:24)
[2018-12-27] MEDS: PIPERACILLIN/TAZOBACTAM 3,375 MG in SODIUM CHLORIDE 0.9% 100 ML IV SCH ×3 (01:03→17:05)
[2018-12-27] MEDS: SODIUM CHLORIDE 0.9% 1,000 ML IV SCH ×3 (06:20→12:36)
[2018-12-27] MEDS: DONEPEZIL 10 MG TABLET PO SCH (10:12)
[2018-12-27] MEDS: MEMANTINE 10 MG TABLET PO SCH ×2 (10:12→21:55)
[2018-12-27] MEDS: CHOLECALCIFEROL 1,000 UNIT TABLET PO SCH (10:12)
[2018-12-27] MEDS: ASCORBIC ACID 500 MG TABLET PO SCH ×2 (10:12→21:54)
[2018-12-27] MEDS: POTASSIUM CHLORIDE 20 MEQ TABLET PO SCH ×2 (10:12→21:55)
[2018-12-27] MEDS: MULTIVITAMIN (CENTRUM) TABLET PO SCH (10:12)
[2018-12-27] MEDS: KETOCONAZOLE 2% CREAM 30 GM TUBE TOP SCH ×2 (10:12→21:55)
[2018-12-27] MEDS: MAGNESIUM OXIDE 400 MG TABLET PO SCH (10:12)
[2018-12-27] MEDS: METOPROLOL SUCCINATE XL 25 MG TABLET PO SCH ×2 (10:12→21:54)
[2018-12-27] MEDS: CLOPIDOGREL 75 MG TABLET PO SCH (10:12)
[2018-12-27] MEDS: AMIODARONE 200 MG TABLET PO SCH ×2 (10:13→21:55)
[2018-12-27] MEDS: LEVOFLOXACIN 750 MG TABLET PO SCH (10:13)
[2018-12-27] MEDS: FLUTICASONE 50 MCG NASAL SPRAY 16 GM BOTTLE BOTH NARES SCH (10:13)
[2018-12-27] MEDS: FENOFIBRATE 145 MG TABLET PO SCH (10:13)
[2018-12-27] MEDS: PANTOPRAZOLE 40 MG TABLET PO SCH (10:13)
[2018-12-27] MEDS: VANCOMYCIN 50 MG/ML 60 ML/BOTTLE PO SCH ×2 (10:15→22:06)
[2018-12-27] MEDS: ESCITALOPRAM 10 MG TABLET PO SCH (21:54)
[2018-12-27] MEDS: ASPIRIN EC 81 MG TABLET PO SCH (21:54)
[2018-12-27] MEDS: ROSUVASTATIN 20 MG TABLET PO SCH (21:55)
[2018-12-27] MEDS: ENOXAPARIN 40 MG/0.4 ML SYRINGE SUBCUT SCH (21:55)
[2018-12-28] MEDS: PIPERACILLIN/TAZOBACTAM 3,375 MG in SODIUM CHLORIDE 0.9% 100 ML IV SCH ×3 (01:21→17:33)
[2018-12-28] MEDS: SODIUM CHLORIDE 0.9% 1,000 ML IV SCH ×2 (08:00→17:33)
[2018-12-28 08:50] LABS: Basophils % 0.1 % (0.0-0.8); Eosinophils % 0.5 % (0.00-10.9); Hematocrit 31.5 VOL% (42.0-52.0); Hemoglobin 9.9 GM/DL (14.0-18.0); Immature Granulocytes % 5.3 %; Lymphocytes # 2.9 10*3/uL (1.4-4.0); Lymphocytes % 38.9 % (21.2-54.2); Mean Corpuscular HGB Conc 31.4 GM/DL (32-36); Mean Corpuscular Hemoglobin 27 PG (27-34); Monocytes # 0.3 10*3/uL (0.11-0.8); Monocytes % 4.1 % (1.7-12.7); Neutrophils # 3.8 10*3/uL (1.4-7.4); Neutrophils % 51.1 % (38.7-73.9); Platelet Count 222 T/CUMM (130-400); Red Blood Count 3.62 MC/CUMM (3.8-5.5); Red Cell Distribution Width 14.6 % (9.3-17.3); White Blood Count 7.5 T/CUMM (4-12)
[2018-12-28 09:21] LABS: Band Neutrophils 1 % (0-10); Hypochromasia 1+; Lymphocytes 36 % (20-55); Platelet Estimate Adequate; Segmented Neutrophils 61 % (50-85); Total Cells Counted 100
[2018-12-28] MEDS: LEVOFLOXACIN 750 MG TABLET PO SCH (09:36)
[2018-12-28] MEDS: CHOLECALCIFEROL 1,000 UNIT TABLET PO SCH (09:36)
[2018-12-28] MEDS: CLOPIDOGREL 75 MG TABLET PO SCH (09:36)
[2018-12-28] MEDS: DONEPEZIL 10 MG TABLET PO SCH (09:36)
[2018-12-28] MEDS: MAGNESIUM OXIDE 400 MG TABLET PO SCH (09:36)
[2018-12-28] MEDS: MULTIVITAMIN (CENTRUM) TABLET PO SCH (09:36)
[2018-12-28] MEDS: POTASSIUM CHLORIDE 20 MEQ TABLET PO SCH ×2 (09:36→21:02)
[2018-12-28] MEDS: MEMANTINE 10 MG TABLET PO SCH ×2 (09:37→21:02)
[2018-12-28] MEDS: ASCORBIC ACID 500 MG TABLET PO SCH ×2 (09:37→21:02)
[2018-12-28] MEDS: AMIODARONE 200 MG TABLET PO SCH ×2 (09:37→21:02)
[2018-12-28] MEDS: METOPROLOL SUCCINATE XL 25 MG TABLET PO SCH ×2 (09:37→21:02)
[2018-12-28] MEDS: KETOCONAZOLE 2% CREAM 30 GM TUBE TOP SCH ×2 (10:00→21:03)
[2018-12-28] MEDS: PANTOPRAZOLE 40 MG TABLET PO SCH (12:12)
[2018-12-28] MEDS: FENOFIBRATE 145 MG TABLET PO SCH (12:12)
[2018-12-28] MEDS: VANCOMYCIN 50 MG/ML 60 ML/BOTTLE PO SCH ×2 (12:13→21:04)
[2018-12-28] MEDS: FLUTICASONE 50 MCG NASAL SPRAY 16 GM BOTTLE BOTH NARES SCH (12:29)
[2018-12-28] MEDS: ENOXAPARIN 40 MG/0.4 ML SYRINGE SUBCUT SCH (21:02)
[2018-12-28] MEDS: ESCITALOPRAM 10 MG TABLET PO SCH (21:02)
[2018-12-28] MEDS: ROSUVASTATIN 20 MG TABLET PO SCH (21:02)
[2018-12-28] MEDS: ASPIRIN EC 81 MG TABLET PO SCH (21:02)
[2018-12-29] MEDS: PIPERACILLIN/TAZOBACTAM 3,375 MG in SODIUM CHLORIDE 0.9% 100 ML IV SCH ×2 (00:52→09:00)
[2018-12-29] MEDS: SODIUM CHLORIDE 0.9% 1,000 ML IV SCH ×2 (08:28→08:55)
[2018-12-29] MEDS: DONEPEZIL 10 MG TABLET PO SCH (08:57)
[2018-12-29] MEDS: METOPROLOL SUCCINATE XL 25 MG TABLET PO SCH (08:58)
[2018-12-29] MEDS: MEMANTINE 10 MG TABLET PO SCH (09:02)
[2018-12-29] MEDS: CHOLECALCIFEROL 1,000 UNIT TABLET PO SCH (09:03)
[2018-12-29] MEDS: MULTIVITAMIN (CENTRUM) TABLET PO SCH (09:03)
[2018-12-29 11:26] VITALS: BP 109/69
[2018-12-29] MEDS: KETOCONAZOLE 2% CREAM 30 GM TUBE TOP SCH (12:59)
[2018-12-29] MEDS: AMIODARONE 200 MG TABLET PO SCH (12:59)
[2018-12-29] MEDS: MAGNESIUM OXIDE 400 MG TABLET PO SCH (13:00)
[2018-12-29] MEDS: CLOPIDOGREL 75 MG TABLET PO SCH (13:00)
[2018-12-29] MEDS: POTASSIUM CHLORIDE 20 MEQ TABLET PO SCH (13:00)
[2018-12-29] MEDS: FENOFIBRATE 145 MG TABLET PO SCH (13:00)
[2018-12-29] MEDS: ASCORBIC ACID 500 MG TABLET PO SCH (13:00)
[2018-12-29] MEDS: PANTOPRAZOLE 40 MG TABLET PO SCH (13:00)
[2018-12-29] MEDS: LEVOFLOXACIN 750 MG TABLET PO SCH (13:00)
[2018-12-29] MEDS: FLUTICASONE 50 MCG NASAL SPRAY 16 GM BOTTLE BOTH NARES SCH (13:00)
== END 2018-12-29 15:49 | disposition hospice, home (50) | DRG 180 ==
LOC: EDUNIT# → EDBD → N.ED 15:46 → N.EDINP 18:12 → SUATTDRO 18:12 → N.ICU 19:30 → N.2E 12-22 15:04
PROVIDERS: ADMIT Internal Medicine; ATTEND Internal Medicine
PROC: BRONCHB (2018-12-24 08:05)